=== PATIENT | male | born 1940 | race Caucasian/White ===

== ENCOUNTER 2017-08-23 12:47 | Emergency (ER) | payer MEDICARE ==
[2017-08-23 14:04] LABS: #Eosinphils 0.1 thou/uL (0.0-0.7); #Lymphocytes 0.8 thou/uL (1.20-3.40); #Monocytes 0.9 thou/uL (0.11-0.59); #Neutrophils 8.6 thou/uL (1.40-6.50); %Eosinophils 0.5 % (0.0-10.0); %Lymphocytes 7.5 % (21.0-51.0); %Monocytes 8.3 % (0.0-10.0); Hematocrit 52.3 % (42.0-52.0); Mean Platelet Volume 7.7 fL (7.4-10.4); Red Blood Cell (RBC) Count 5.45 mill/uL (4.70-6.10); White Blood Cell (WBC) Count 10.3 thou/uL (4.8-10.8)
[2017-08-23 14:27] LABS: ALT (SGPT) 21 U/L (8-55); AST (SGOT) 19 U/L (5-34); Alkaline Phosphatase 110 U/L (40-150); Anion Gap 12 mmol/L (10-20); BUN (Urea Nitrogen) 23 mg/dL (8.4-25.7); Bilirubin, Total 1.4 mg/dL (0.2-1.2); CK (CPK) 68 U/L (30-200); Calc. Creatinine Clearance 0 mL/min (70-130); Calcium 10.2 mg/dL (7.8-10.44); Carbon Dioxide 30 mmol/L (23-31); Chloride 103 mmol/L (98-107); Estimated GFR-MDRD 60; Globulin 3.1 g/dL (2.4-3.5); Protein, Total 7.4 g/dL (5.8-8.1)
[2017-08-23 14:28] LABS: Troponin I 0.011 ng/mL (< 0.028)
--- NOTE | 2017-08-23 15:13 | RAD ---
CHEST 2 VIEWS: Date: 08/23/17 HISTORY: Bradycardia. COMPARISON: 03/19/13. FINDINGS: Cardiac silhouette and pulmonary vasculature are unremarkable. Mediastinum is midline. There is no co nfluent air space consolidation, pneumothorax, or pleural fluid evident. Metallic clips overlie the r ight axilla. Ossification of the anterior longitudinal ligament of the thoracic spine on the lateral view is consistent with diffuse idiopathic skeletal hyperostosis. IMPRESSION: Chronic-type findings are stable. No active cardiopulmonary abnormalities are demonstrated. POS: [facility]
== END 2017-08-23 16:34 | disposition home or self-care (01) ==
LOC: ERS 12:47
DX: R00.1 Bradycardia, unspecified (principal); I48.91 Unspecified atrial fibrillation; E78.5 Hyperlipidemia, unspecified; I10 Essential (primary) hypertension
CPT/HCPCS: 36415; 71020; 80053; 82553; 83735; 83880; 84443; 84484; 85025; 93005

== ENCOUNTER 2018-08-01 09:02 | Outpatient (CLI) | payer MEDICARE ==
--- NOTE | 2018-08-01 15:56 | MRI ---
MRI NECK AND FACE WITH AND WITHOUT CONTRAST: CLINICAL HISTORY: Mass of parotid gland. FINDINGS: Correlation is made with prior imaging exams. There is predominant fatty signal of each parotid gland with interspersed intraparotid lymph nodes de monstrated bilaterally, the largest of which is located within the left parotid gland, approximately 1.4 cm in diameter, immediately overlying the left angle of the mandible, situated within the deep lo be. The submandibular glands are unremarkable. No obvious intrinsic mass of the pharynx or at the l evel of the glottis, within limitations, as there is patient motion, which distorts anatomy and limit s the sensitivity of the evaluation. Incidental note of cervical spine degenerative change. IMPRESSION: Bilateral intraparotid lymph nodes, as discussed above. Prior tubular structure of the left parapharyngeal space is consistent with a traversing vein. POS: [facility]
== END 2018-08-01 09:03 | disposition home or self-care (01) ==
LOC: BICMRI 09:02
PROVIDERS: ATTEND Specialist
DX: R22.0 Localized swelling, mass and lump, head (principal)
CPT/HCPCS: 70543; 82565

== ENCOUNTER 2018-11-15 14:27 | Inpatient (IN) | payer MEDICARE ==
[~2018-11-15 14:27] MED LIST: Lidocaine 1% PF 5 ML VIAL ONE; PROPOFOL 200 MG/20 ML VIAL ONE
[2018-11-15] MEDS ORDERED: [UNRECOGNIZED DRUG - OTHER] IV SCH ×2 (16:00→20:00)
[2018-11-15] MEDS ORDERED: HUMAN PROTHROMBIN COMPLX IV SCH ×3 (16:00→20:00)
[2018-11-15] MEDS ORDERED: HUM PROTHROMBIN CPLX IV SCH ×3 (16:00→20:00)
[2018-11-15 16:11] LABS: #Lymphocytes 0.9 thou/uL (1.20-3.40); #Monocytes 1.4 thou/uL (0.11-0.59); #Neutrophils 13.5 thou/uL (1.40-6.50); %Eosinophils 0.2 % (0.0-10.0); %Lymphocytes 5.8 % (21.0-51.0); Hemoglobin 7.5 g/dL (14.0-18.0); Mean Corpuscular Hemoglobin 32.5 pg (27.0-31.0); Mean Corpuscular Volume 98.3 fL (78.0-98.0); Mean Platelet Volume 8.7 fL (7.4-10.4); Platelet Count 186 thou/uL (130-400); RBC Distribution Width 12.7 % (11.5-14.5); Red Blood Cell (RBC) Count 2.32 mill/uL (4.70-6.10); White Blood Cell (WBC) Count 15.9 thou/uL (4.8-10.8)
[2018-11-15 16:16] LABS: INR-International Normal Ratio 2.3; PTT 31.4 SEC (22.9-36.1); Prothrombin Time 25.4 SEC (12.0-14.7)
[2018-11-15 16:32] LABS: ALT (SGPT) 7 U/L (8-55); AST (SGOT) 9 U/L (5-34); Albumin 2.3 g/dL (3.4-4.8); Alkaline Phosphatase 51 U/L (40-150); Anion Gap 11 mmol/L (10-20); BUN (Urea Nitrogen) 60 mg/dL (8.4-25.7); Bilirubin, Total 0.5 mg/dL (0.2-1.2); Calc. Creatinine Clearance 0 mL/min (70-130); Calcium 7.6 mg/dL (7.8-10.44); Carbon Dioxide 16 mmol/L (23-31); Chloride 122 mmol/L (98-107); Estimated GFR-MDRD 62; Globulin 1.4 g/dL (2.4-3.5); Glucose 137 mg/dL (83-110); Potassium 4.1 mmol/L (3.5-5.1); Protein, Total 3.7 g/dL (5.8-8.1); Sodium 145 mmol/L (136-145)
[2018-11-15 17:04] LABS: Troponin I Less than 0.010 ng/mL (< 0.028)
[2018-11-15] MEDS ORDERED: Pantoprazole 40 MG VIAL IVP SCH (17:15)
[2018-11-15] MEDS ORDERED: Pantoprazole 40 MG VIAL ONE (17:30)
--- NOTE | 2018-11-15 19:19 | HP ---
PRIMARY CARE PHYSICIAN: Stacey Brower MD CHIEF COMPLAINT: Weakness, falls, and melena. HISTORY OF PRESENT ILLNESS: This is a 77-year-old white male with a history of atrial fibrillation, on Xarelto. No previous history of GI bleed. He and his report a history of melena for the past 3 to 4 days. The patient is a little bit confused and most of the history is confirmed with his who was present in the room. He has started feeling weak after that he has had multiple falls. He was actually seen in the [facility] Emergency Room for a couple of days in a row after falls including one leaving bruises on his right anterior abdominal wall and his right shoulder. He became progressively weak and has become more confused as well. He is usually alert and oriented x3 without any confusion, so he was presented back to the emergency room again. There, he was noted to have multiple melenic stools and his blood count had dropped by 2 or 3 points in the last 2 days. In the [facility] Emergency Room, he was transfused with 1 unit of packed red blood cells. Uncertain if he had any other medications at that time. He was transferred here. In our emergency room, he had a hemoglobin, it dropped from 8.2 in the [facility] before the transfusion to 7.5 now. So, the patient received Kcentra 2500 units IV and is now being typed and crossed for transfusion of blood as well. PAST MEDICAL HISTORY: All history taken from the patient, confirmed with his and with the chart. 1. Parkinson disease. 2. Atrial fibrillation with prior ablation, on Xarelto. 3. Coronary artery disease with previous cardiac stents 7 years ago. 4. Previous TIA. 5. Hypertension. 6. Dyslipidemia. 7. 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 8. Obstructive sleep apnea, on CPAP. 9. Melanoma on back, treated with excision only. 10. Previous nephrolithiasis. 11. Intervertebral disk disease. PAST SURGICAL HISTORY: 1. Cardiac stent. 2. Right kidney tumor removal in 2016. 3. Cholecystectomy. 4. Tonsillectomy. 5. Appendectomy. 6. Cardiac ablation. 7. Bilateral cataract removal. SOCIAL HISTORY: The patient is , lives with his . No tobacco, alcohol, or illicit drug use. FAMILY HISTORY: Mother in her 80s and had a pacemaker and father was killed in a motor vehicle accident at the age of 58. ALLERGIES: NO KNOWN DRUG ALLERGIES. CURRENT MEDICATIONS: The patient's does not remember his medications and does not have a list with her right now. The medication list from the [facility] Emergency Room, I have not been able to confirm, but have his medicines listed as: 1. Amlodipine 5 mg daily. 2. Aspirin 81 mg daily. 3. Atorvastatin 80 mg at night. 4. Combigan ophthalmic drops. 5. Sinemet 10/100 mg one tablet 3 times a day. 6. Keflex 500 mg, unknown dosing or length of use. 7. Klonopin 0.5 mg, unknown frequency or reason for use. 8. Coenzyme Q 200 mg. 9. Furosemide 20 mg daily. 10. Lidoderm patch applied q.7 days. 11. Losartan 100 mg daily. 12. Metoprolol 25 mg twice a day. 13. Bactroban ointment. 14. Protonix 40 mg daily. 15. Potassium chloride 10 mEq daily. 16. Xarelto 20 mg daily. REVIEW OF SYSTEMS: CONSTITUTIONAL: No fevers. No chills. Just generalized weakness and confusion. EYES: No double vision or blurred vision. ENT: No congestion, drainage, or sore throat. No coughing up blood. CARDIOVASCULAR: No chest pain. No palpitations or racing heart. PULMONARY: No coughing, wheezing, or shortness of breath. GASTROINTESTINAL: No abdominal pain. No nausea or vomiting. He has black tarry stools as per the HPI. GENITOURINARY: No dysuria or hematuria. MUSCULOSKELETAL: He has some generalized muscle aches and joint pains from the falls, but nothing that hurts terribly bad. No joints that are hurting too much to walk. No worsening of his chronic back problems. SKIN: No rashes. He has had bruises as per the HPI. NEUROLOGIC: No numbness or tingling. No focal weakness. Just generalized weakness. PSYCHIATRIC: See HPI. PHYSICAL EXAMINATION: VITAL SIGNS: Blood pressure 131/59, pulse 88, respirations 22, temperature 97.8, and O2 saturation 100% on room air. GENERAL: This is a well-developed elderly white male, who appears very pale and mildly confused, but in no acute distress. HEENT: Pupils equal, round, and reactive to light. Pale conjunctivae. Oropharynx clear without lesions, erythema, or exudate. NECK: Supple. No lymphadenopathy. No thyroid nodules or enlargement. HEART: Regular rate and rhythm. No murmurs, rubs, or gallops. LUNGS: Clear to auscultation bilaterally. No wheezes, crackles, or rhonchi. ABDOMEN: Soft. Tender to palpation mildly in the midepigastric region and over a bruise on the right side of the abdomen. No guarding. No rebound tenderness. No hepatosplenomegaly or other masses. EXTREMITIES: No clubbing, cyanosis, or edema. SKIN: The patient does have some scattered bruises. NEUROLOGIC: The patient is moving all of the extremities. No facial droop. PSYCHIATRIC: The patient is alert and oriented to person, to place, to situation, but has some trouble remembering exactly what has happened recently and occasionally facing goofy things. LABORATORY DATA: White blood cell count 15.9, hemoglobin 7.5, hematocrit 22.8, and platelet count 186. Coagulation profile with a PT of 25 and INR of 2.3. Complete metabolic panel is notable for chloride of 122, a carbon dioxide of 16, BUN of 60, creatinine of 1.14, glucose of 137, calcium of 7.6, and albumin of 2.3. The rest was normal. IMAGING DATA: CT of the abdomen done at [facility] by report has no acute abnormalities, does have some diverticulosis visible with no diverticulitis. Chest x-ray done in the [facility] Emergency Room by report has no acute abnormalities as well. EKG from [facility] reviewed which shows sinus rhythm with frequent premature ventricular complexes. No significant ST elevations or other ischemic changes. ASSESSMENT AND PLAN: 1. Acute gastrointestinal bleed, likely upper gastrointestinal bleed. We will transfuse the patient blood as needed. He has already received the Kcentra and we will go ahead and give IV dose of Protonix and start a twice a day dosing as well. The patient may have a bleed from an ulcer or gastritis. He does have a low albumin. No history of liver disease, but it is always possible that he has some liver problems with varicosities as well as a source. He is not having active vomiting of blood though, and it is possible that the melena we are seeing is from bleeding that is now stopped. We will keep a close eye on his hemodynamic status. We will consult Dr. Jorge Raygoza for Gastroenterology as the patient will likely need an EGD and possibly a colonoscopy. 2. Coronary artery disease. We will have to hold blood thinners for now. We will resume aspirin when able. We will continue the patient's atorvastatin. We will try to keep the hemoglobin above 7 to make certain he is getting good blood flow into the coronary vessels. 3. Hypertension. We will hold the patient's antihypertensives for now. However, we will likely need to resume them if his bleed stops. 4. Parkinson's. We will resume the patient's medications. 5. Deep venous thrombosis prophylaxis with the patient on SCDs while in bed. 6. Atrial fibrillation, paroxysmal, currently in sinus rhythm with PVCs on his EKG. CODE STATUS: I did discuss this with the patient and his who is his medical decision maker and medical power of title attorney. He is a full code. The patient's 's name is Rivka Roman. Job ID: [id number]
[2018-11-15] MEDS ORDERED: Acetaminophen 650 MG Suppository PR PRN (19:25)
[2018-11-15] MEDS ORDERED: Guaifenesin DM 100-10/5 ML UDCUP PO PRN (19:25)
[2018-11-15] MEDS ORDERED: Ondansetron PF 4 MG/2 ML Vial IVP PRN (19:25)
[2018-11-15] MEDS ORDERED: Melatonin 3 MG TAB PO PRN (19:25)
[2018-11-15] MEDS ORDERED: Senokot S 8.6-50 MG TAB PO PRN (19:25)
[2018-11-15] MEDS ORDERED: Ondansetron ODT 4 MG TAB PO PRN (19:25)
[2018-11-15] MEDS ORDERED: [UNRECOGNIZED DRUG - OTHER] IV SCH (20:00)
[2018-11-15] MEDS ORDERED: Fentanyl 100 MCG/2 ML VIAL ONE (20:02)
[2018-11-15 20:15] LABS: Troponin I Less than 0.010 ng/mL (< 0.028)
[2018-11-15] MEDS ORDERED: Ondansetron HCl/PF 4 MG/2 ML Vial IVP PRN (20:31)
[2018-11-15] MEDS: Sodium Chloride 0.9% 1,000 ML IV SCH (21:21)
[2018-11-15] MEDS: Carbidopa/Levodopa 10-100 mg Tablet PO SCH (21:22)
[2018-11-15] MEDS: Pantoprazole 40 MG VIAL IVP SCH (21:23)
--- NOTE | 2018-11-15 21:25 | CON ---
DATE OF CONSULTATION: HISTORY OF PRESENT ILLNESS: The patient is a 77-year-old male, who is in his normal state of health until 2 days ago when he started having GI bleeding. This originally started out as black in color. He has had no abdominal pain. He has had no nausea or vomiting. He denies any NSAID use. He does take Xarelto for atrial fibrillation. He has never had a GI bleed. He is unsure whether he has diverticula. He has never had gastric ulcers. In the emergency room, he has had episodes of low blood pressure. He was given Kcentra 2500 units. PAST MEDICAL HISTORY: Includes atrial fibrillation on Xarelto, coronary artery disease with previous stent placement, hypertension, and hyperlipidemia. PAST SURGICAL HISTORY: Includes kidney removal, cholecystectomy, tonsillectomy, and cardiac ablation. SOCIAL HISTORY: He does not smoke or drink. ALLERGIES: NO KNOWN DRUG ALLERGIES. FAMILY HISTORY: Negative for GI or liver disease. MEDICATIONS: Include: 1. Norvasc 5 mg p.o. daily. 2. Aspirin 81 mg p.o. daily. 3. Atorvastatin 80 mg p.o. q.p.m. 4. Eyedrops. 5. Sinemet 10/100 one p.o. t.i.d. 6. Keflex 500 mg. 7. Klonopin 0.5 mg. 8. Coenzyme Q. 9. Lasix 20 mg. 10. Losartan 100 mg p.o. daily. 11. Metoprolol 25 mg p.o. b.i.d. 12. Protonix 40 mg p.o. daily. 13. Potassium chloride 10 mEq p.o. daily. 14. Xarelto 20 mg p.o. daily. PHYSICAL EXAMINATION: GENERAL: Shows a pale white male, in no acute distress. VITAL SIGNS: Blood pressure 104/70, pulse of 90, and respiratory rate 16. CHEST: Clear. CARDIOVASCULAR: Irregular rate and rhythm. ABDOMEN: Soft and nontender without organomegaly or masses. Bowel sounds are present and normoactive. RECTAL: Deferred. EXTREMITIES: Normal. NEUROLOGIC: Nonfocal. LABORATORY DATA: Hemoglobin from 1348 shows a hemoglobin 7.5, hematocrit of 22.8. PT is 25.4 with an INR 2.3. BUN 60, creatinine 1.14, CO2 of 16, glucose 137, and albumin 2.3. ASSESSMENT: 1. Probable upper gastrointestinal bleed. 2. Atrial fibrillation, on Xarelto. 3. Anemia secondary to gastrointestinal blood loss. RECOMMENDATIONS: 1. Emergent EGD. 2. Consider additional doses of Kcentra. 3. Serial H and H. 4. Transfuse as needed. 5. PPI. Job ID: [id number]
[2018-11-15] MEDS ORDERED: Lorazepam 2 MG/ML VIAL SLOW IVP SCH (22:00)
[2018-11-15 22:25] VITALS: BMI 24.7
[2018-11-16 01:01] LABS: Troponin I Less than 0.010 ng/mL (< 0.028)
[2018-11-16 04:35] LABS: #Lymphocytes 0.7 thou/uL (1.20-3.40); #Neutrophils 18.1 thou/uL (1.40-6.50); %Basophils 0.1 % (0.0-1.0); %Eosinophils 0.2 % (0.0-10.0); %Lymphocytes 3.7 % (21.0-51.0); %Neutrophils 91.1 % (42.0-75.0); Hemoglobin 6.9 g/dL (14.0-18.0); Mean Corpuscular HGB CONC 32.9 g/dL (32.0-36.0); Mean Corpuscular Hemoglobin 32.7 pg (27.0-31.0); Mean Corpuscular Volume 99.1 fL (78.0-98.0); Mean Platelet Volume 8.6 fL (7.4-10.4); Platelet Count 165 thou/uL (130-400); RBC Distribution Width 13.5 % (11.5-14.5); Red Blood Cell (RBC) Count 2.12 mill/uL (4.70-6.10); White Blood Cell (WBC) Count 19.9 thou/uL (4.8-10.8)
[2018-11-16 04:56] LABS: Anion Gap 13 mmol/L (10-20); BUN (Urea Nitrogen) 68 mg/dL (8.4-25.7); Calc. Creatinine Clearance 63 mL/min (70-130); Calcium 7.9 mg/dL (7.8-10.44); Carbon Dioxide 15 mmol/L (23-31); Chloride 122 mmol/L (98-107); Estimated GFR-MDRD 51; Glucose 148 mg/dL (83-110); Potassium 3.9 mmol/L (3.5-5.1); Sodium 146 mmol/L (136-145)
--- NOTE | 2018-11-16 06:57 | NM ---
NUCLEAR MEDICINE GI BLEEDING STUDY: 11/16/2018 HISTORY: Gastrointestinal bleeding. RADIOPHARMACEUTICAL: Technetium 99m tagged red blood cells 30 millicuries IV. VIEWS OBTAINED: Anterior. TECHNIQUE: Sequential anterior imaging was obtained of the abdomen. FINDINGS: There is a focus of increased uptake of radiotracer seen at approximately 8 minutes in the right lowe r quandrant. This activity increases and progresses over time and conforms to a loop of bowel. The activity conforms to multiple serpiginous loops of bowel in the right lower quadrant. While the exac t site of bleeding is difficult to determine, findings are suggestive of activity within loops of sma ll bowel. The activity does not conform to the expected location of the colon. A recent CT scan exa mination is not provided, but a CT scan in 2013 demonstrated normal positioning of the colon on that exam. IMPRESSION: 1. Evidence of a gastrointestinal bleed within the right lower quadrant of the abdomen with multiple serpiginous loops of bowel seen, which is more suggestive of a gastrointestinal bleeding site within the small bowel. The activity does not definitely conform to the expected location of the colon. 2. The above findings were discussed with Dr. Chau on 11/16/2018 at 1206 hours. CODE CR POS: [facility]
--- NOTE | 2018-11-16 08:14 | OP ---
DATE OF PROCEDURE: 11/15/2018 PREOPERATIVE DIAGNOSIS: Gastrointestinal bleed. DESCRIPTION OF PROCEDURE: After informed consent was obtained, the patient was placed in a left lateral decubitus position. Anesthesia was administered per the Anesthesia Department. Forward-viewing endoscope was inserted into esophagus under direct visualization with ease and passed to the second portion of the duodenum with ease. Second portion of the duodenum and duodenal bulb were normal. Pylorus, antrum, body, fundus, and cardia were normal. No blood was seen in the upper GI tract. ASSESSMENT: Normal esophagogastroduodenoscopy. RECOMMENDATIONS: 1. GI bleeding scan. 2. Serial H and H. 3. Increase doses of the Kcentra. Job ID: [id number]
--- NOTE | 2018-11-16 08:35 | CON ---
DATE OF CONSULTATION: HISTORY OF PRESENT ILLNESS: A 77-year-old gentleman from [place], [place]. History obtained from talking to the daughter. For the last several days, the patient had been getting lightheaded, weak, was taken to the ER at least 2 times in [place] where nothing specific was done. Lab was obtained, which was negative. Yesterday, he fell again and became more confused, was hypotensive. Found to be anemic in the ER. Given a unit of packed cells and Kcentra for lower GI bleed, apparently for 5 days now. The daughter says he is having black stools. The patient has never smoked. Does not drink. He has periods of confusion from time to time, probably from his Parkinson disease. PAST MEDICAL HISTORY: Parkinson disease, atrial arrhythmias, atrial fibrillation, hyperlipidemia, high cholesterol, and sleep apnea. PAST SURGICAL HISTORY: Include stent, ablation, cholecystectomy, tonsils, and kidney surgery. SOCIAL HISTORY: Alcohol, minimal. MEDICATIONS: List of medicine from home as noted: 1. CoQ10 200. 2. Xarelto 20. 3. Losartan. 4. Calcium. ALLERGIES: NONE. FAMILY HISTORY: Unremarkable. REVIEW OF SYSTEMS: Difficult to obtain. He is confused, but from time to time, answers appropriate questions. PHYSICAL EXAMINATION: VITAL SIGNS: Blood pressure 120/80, pulse 80, respiratory rate 18, and saturations 98%. GENERAL: He does move all four extremities. CHEST: Decreased breath sounds. No wheezing. CARDIAC: Atrial fibrillation. ABDOMEN: Distended, but soft. LABORATORY DATA: White count 82509, H and H 6.9 and 21, platelet count 165, BUN and creatinine 60 and 1.37. He had a GI bleed scan, which shows bleeding from the right colon. GI saw the patient last night. Apparently, upper endoscopy was unremarkable, unable to do lower endoscopy. IMPRESSION: 1. Lower gastrointestinal bleed. 2. Atrial fibrillation, on Xarelto. 3. Parkinson disease, sleep apnea and azotemia. Transfusion of packed cells. Continue observation in the ICU. Input from GI. We will follow. This is a consultation note, 70 minutes, 50% direct patient care. Job ID: [id number]
[2018-11-16] MEDS: Pantoprazole 40 MG VIAL IVP SCH ×2 (08:50→20:36)
[2018-11-16] MEDS: Carbidopa/Levodopa 10-100 mg Tablet PO SCH ×3 (09:22→20:36)
[2018-11-16] MEDS: Sodium Chloride 0.9% 1,000 ML IV SCH ×2 (09:25→23:00)
--- NOTE | 2018-11-16 09:39 | PDOC.PN ---
- Subjective Encounter Start Date: 11/16/18 Encounter Start Time: 11:25 Subjective: Patient with stable vitals overnight, less melena. No more hypotension. His -: confusion has progressed, agitated all night. No sleep. Not oriented. - Objective Resuscitation Status - Order Detail: 11/15/18 17:01 Resuscitation Status Routine Resuscitation Status: FULL: Full Resuscitation Discussed with: Patient and who is SAMMY LÓPEZ Reviewed: Yes Vital Signs & Weight: Vital Signs (12 hours) Temp Pulse Resp BP Pulse Ox 11/16/18 08:30 98.1 F 82 18 127/32 L 100 11/16/18 08:14 98.7 F 93 20 108/68 100 11/16/18 07:00 98.1 F 11/16/18 03:00 98.9 F Weight Weight 213 lb 13.574 oz Most Recent Monitor Data Heart Rate from ECG 92 NIBP 125/52 NIBP BP-Mean 76 Respiration from ECG 27 SpO2 99 I&O: 11/15/18 11/16/18 11/17/18 06:59 06:59 06:59 Intake Total 517 0 Output Total 252 Balance 265 0 Result Diagrams: 11/16/18 04:17 11/16/18 04:17 Phys Exam - Physical Examination HEENT: moist MMs Respiratory: no wheezing, no rales, no rhonchi Cardiovascular: RRR, no significant murmur Gastrointestinal: soft, positive bowel sounds Neurological: non-focal Deviation from normal: sleeping, but restless, moving legs constantly, required restraints overnig Dx/Plan (1) Delirium Code(s): R41.0 - DISORIENTATION, UNSPECIFIED Status: Acute Comment: likely due to GI bleed/anemia on top of Parkinson's. Will give some Seroquel at night and see if can sleep. Check a UA to r/o UTI. (2) GI bleed Code(s): K92.2 - GASTROINTESTINAL HEMORRHAGE, UNSPECIFIED Status: Acute Comment: Bleeding scan showing active bleeding in RLQ into small bowel, vitals stable and only small drop this AM, appears to be slowing down, will transfuse one more unit and monitor, no need for surgical consultation at this point (3) Paroxysmal atrial fibrillation Code(s): I48.0 - PAROXYSMAL ATRIAL FIBRILLATION Status: Chronic (4) Parkinsons disease Code(s): G20 - PARKINSON'S DISEASE Status: Chronic (5) CAD (coronary artery disease) Code(s): I25.10 - ATHSCL HEART DISEASE OF [place] CORONARY ARTERY W/O ANG PCTRS Status: Chronic Comment: previous stent (6) Dyslipidemia Code(s): E78.5 - HYPERLIPIDEMIA, UNSPECIFIED Status: Chronic (7) LIBERTY on CPAP Code(s): G47.33 - OBSTRUCTIVE SLEEP APNEA (ADULT) (PEDIATRIC); Z99.89 - DEPENDENCE ON OTHER ENABLING MACHINES AND DEVICES Status: Chronic (8) Hypertension Code(s): I10 - ESSENTIAL (PRIMARY) HYPERTENSION Status: Chronic - Plan cont current plan of care, PT/OT, DVT proph w/SCDs * . - Discharge Day Encounter end time: 11:40
[2018-11-16] MEDS: Lorazepam 2 MG/ML VIAL SLOW IVP PRN (12:19)
--- NOTE | 2018-11-16 13:19 | PRG ---
DATE OF SERVICE: 11/16/2018 SUBJECTIVE: The patient is confused last night and agitated. He has had no bowel movements per the nurse. OBJECTIVE: VITAL SIGNS: Temperature is 98.4, pulse of 92, respiratory rate 22, blood pressure 122/53. CHEST: Clear. CARDIOVASCULAR: Regular rate and rhythm without murmurs or gallops. ABDOMEN: Benign. LABORATORY DATA: White blood cell count of 19.9, hemoglobin 6.9, hematocrit 21.0. PT is 25.4 with an INR 2.3 yesterday. Chemistry shows sodium 143, CO2 15, BUN 68, creatinine 1.37, glucose 148. DIAGNOSTIC DATA: GI bleeding scan shows evidence of a GI bleeding within the right lower quadrant with multiple serpiginous loops of bowel seen, which is suggestive of small bowel bleed. ASSESSMENT: 1. Gastrointestinal bleed. GI bleeding scan indicates small bowel source. 2. Coagulopathy secondary to Xarelto. 3. Confusion/agitation. RECOMMENDATIONS: 1. Some of his agitation may be secondary to his anemia and would recommend keeping his hemoglobin above 7 or 8. 2. Colonoscopy. At some point, but not right now because of his agitation and confusion. 3. Serial hemoglobin and hematocrit. 4. Begin clear liquids. 5. Repeat PT/INR. 6. Hold Xarelto. Job ID: [id number]
[2018-11-16 15:11] LABS: Anisocytosis SLIGHT = 6-15 cells (100X) (0-5/hpf); Band 16 % (5-11); Hemoglobin 7.5 g/dL (14.0-18.0); Lymphocytes 3 % (21-51); MDiff Complete? YES; Mean Corpuscular HGB CONC 33.5 g/dL (32.0-36.0); Mean Corpuscular Hemoglobin 32.4 pg (27.0-31.0); Mean Corpuscular Volume 96.7 fL (78.0-98.0); Mean Platelet Volume 8.1 fL (7.4-10.4); Monocytes 2 % (0-10); Neutrophil 79 % (42-75); Platelet Count 141 thou/uL (130-400); Platelet Morphology Comment Appears Adequate; RBC Distribution Width 13.3 % (11.5-14.5); Red Blood Cell (RBC) Count 2.32 mill/uL (4.70-6.10); White Blood Cell (WBC) Count 19.9 thou/uL (4.8-10.8)
[2018-11-16 16:55] LABS: Bilirubin Negative (Negative); Blood, Urine Negative (Negative); Clarity CLEAR (Clear); Glucose, Urine (Dipstick) Negative (Negative); Leukocyte Negative (Negative); Nitrite Negative (Negative); Protein, Urine (Dipstick) Negative (Neg-Trace); Specific Gravity, Urine 1.021 (1.002-1.036); Urobilinogen 0.2 mg/dL (0.2-1.0)
[2018-11-16 17:31] LABS: INR-International Normal Ratio 1.2; Prothrombin Time 15.7 SEC (12.0-14.7)
[2018-11-16] MEDS: Acetaminophen 325 MG TAB PO PRN (18:36)
[2018-11-17] MEDS: Lorazepam 2 MG/ML VIAL SLOW IVP PRN (02:20)
[2018-11-17 06:20] LABS: Anion Gap 9 mmol/L (10-20); BUN (Urea Nitrogen) 52 mg/dL (8.4-25.7); Calc. Creatinine Clearance 76 mL/min (70-130); Calcium 7.8 mg/dL (7.8-10.44); Carbon Dioxide 19 mmol/L (23-31); Chloride 124 mmol/L (98-107); Estimated GFR-MDRD 63; Glucose 122 mg/dL (83-110); Potassium 3.7 mmol/L (3.5-5.1); Sodium 148 mmol/L (136-145)
[2018-11-17 06:21] LABS: #Eosinphils 0.1 thou/uL (0.0-0.7); #Lymphocytes 0.9 thou/uL (1.20-3.40); #Monocytes 1.2 thou/uL (0.11-0.59); #Neutrophils 13.4 thou/uL (1.40-6.50); %Eosinophils 0.5 % (0.0-10.0); %Lymphocytes 5.8 % (21.0-51.0); %Monocytes 7.7 % (0.0-10.0); %Neutrophils 85.9 % (42.0-75.0); Hemoglobin 7.5 g/dL (14.0-18.0); Mean Corpuscular HGB CONC 32.3 g/dL (32.0-36.0); Mean Corpuscular Hemoglobin 31.6 pg (27.0-31.0); Mean Platelet Volume 8.6 fL (7.4-10.4); Platelet Count 155 thou/uL (130-400); RBC Distribution Width 13.8 % (11.5-14.5); Red Blood Cell (RBC) Count 2.38 mill/uL (4.70-6.10); White Blood Cell (WBC) Count 15.6 thou/uL (4.8-10.8)
[2018-11-17] MEDS: Pantoprazole 40 MG VIAL IVP SCH ×2 (08:27→20:23)
--- NOTE | 2018-11-17 08:49 | PRG ---
DATE OF SERVICE: 11/17/2018 SUBJECTIVE: This morning, he looks like he is stabilized, still somewhat encephalopathic. He is shaking probably from his Parkinson disease. OBJECTIVE: VITAL SIGNS: Blood pressure 148/51, sats are 99%, respiratory rate 18, afebrile. CHEST: Decreased breath sounds. No wheezing. CARDIAC: Normal S1 and S2. No gallops or masses. LABORATORY DATA: White count 15,000, H and H 7 and 21, platelet count 55. His lytes are normal. BUN and creatinine 50 and 1.3. IMPRESSION: 1. Status post gastrointestinal bleed. 2. Atrial fibrillation. 3. Encephalopathy. 4. Parkinson disease. PLAN: We need to restart his home Parkinson's medication. Supportive care PT. Continue observation in the ICU. Avoid excessive sedation. Job ID: [id number]
[2018-11-17] MEDS: Carbidopa/Levodopa 10-100 mg Tablet PO SCH (09:00)
--- NOTE | 2018-11-17 10:55 | PRG ---
DATE OF SERVICE: 11/17/2018 SUBJECTIVE: The patient is still confused, but seemed more appropriate than yesterday. OBJECTIVE: VITAL SIGNS: Blood pressure 108/62, pulse 77, respiratory rate 25, temperature 98.3. CHEST: Clear. CARDIOVASCULAR: Regular rate and rhythm. ABDOMEN: Soft, nontender without organomegaly or masses. Bowel sounds are present normoactive. LABORATORY DATA: White blood cell count of 15.6, hemoglobin of 7.5, hematocrit 23.4. Sodium is 148, CO2 19, BUN 52, glucose 122. Repeat PT/INR was 15.7 with an INR of 1.2. ASSESSMENT: 1. Gastrointestinal bleed. Bleeding scan seemed to indicate a small-bowel source. 2. Coagulopathy, secondary to Xarelto, resolved. 3. Confusion/agitation. 4. Anemia, secondary to gastrointestinal blood loss. RECOMMENDATIONS: 1. Continue to hold Xarelto. 2. Colonoscopy when the patient is less confused. 3. Dr. Zavala covering this. Job ID: [id number]
[2018-11-17] MEDS: Carbidopa/Levodopa 25-100 mg Tablet PO SCH ×2 (11:50→17:16)
[2018-11-17] MEDS: Sodium Chloride 0.9% 1,000 ML IV SCH (11:56)
--- NOTE | 2018-11-17 12:33 | CON ---
DATE OF TELEMEDICINE CONSULTATION: 11/17/2018 CHIEF COMPLAINT: Altered mental status. HISTORY OF PRESENT ILLNESS: The patient is a 77-year-old man, who has had Parkinson disease for 2 years. His Parkinson's is relatively mild per . He is independent and takes care of his day-to-day activities. He has very little tremor. He does not have any confusion or memory problems. He has been falling lately. He has had 4 to 5 falls last week and hurt his back. This admission is mainly for GI bleed and he is going through various investigations for the same and continues to remain confused and agitated. Daughter and were in the room. PAST MEDICAL HISTORY: Parkinson disease, coronary artery disease with atrial fibrillation, hyperlipidemia, hypercholesterolemia, and sleep apnea. PAST SURGICAL HISTORY: He had a coronary artery stent and cardiac ablation procedure, cholecystectomy, tonsillectomy, and kidney surgery for benign kidney tumor. MEDICATIONS: At home; 1. Co Q10. 2. Xarelto. 3. Losartan. 4. Calcium. Xarelto was stopped after his GI bleed. FAMILY HISTORY: Negative for Parkinson's, but positive for heart problems in several members of the family. ALLERGIES: NO KNOWN DRUG ALLERGIES. REVIEW OF SYSTEMS: Difficult to obtain. LABORATORY REPORT: White count 15.6, hemoglobin 7.5, hematocrit 23.4, and platelet count 155. Chemistry; sodium 148, potassium 3.7, chloride 124, BUN is 52, creatinine 1.13, and anion gap 9, bicarbonate is 19, and his other workup includes, I am not seeing a CT of the head at this time and his GI bleed was in the right lower quadrant of the abdomen suggestive of GI bleeding site within small bowel. PHYSICAL EXAMINATION: VITAL SIGNS: Blood pressure is 154/63, pulse rate is 99, and temperature 99.4. GENERAL APPEARANCE: Well-built, well-nourished man, who seems to be confused, mouth-breathing, and seems agitated. Moves all 4 extremities. He does try to follow some commands. We are unable to understand his speech due to dysarthria. CHEST: Clear vesicular breathing. CARDIOVASCULAR: S1 and S2 heard, irregular premature atrial contractions. ABDOMEN: Soft. NEUROLOGICAL: Higher intellectual functions. As discussed, he seems confused, but tries to talk and still can follow some commands. Cranial nerves, pupils 4 mm and brisk. Normal extraocular movements. Normal hearing. Tongue midline. Palate elevates normally. Motor, bulk normal, strength seems to be normal in both upper and lower extremities and this is more of a general motor exam rather than specific muscle group examination, which the patient is unable to perform. Deep tendon reflexes were 2+ in upper extremities, absent in lower extremities. Sensory and cerebellar difficult to determine. IMPRESSION: The patient is a 77-year-old man with Parkinson disease and acute GI bleed with dehydration and anemia. He seems very confused. This is a picture that can be seen in association with Parkinson disease and systemic illness. The patient's reports he takes two tablets of carbidopa-levodopa three times a day and not one tablet. His examination is showing no focal deficits other than cognitive impairment and altered mental status with encephalopathy, likely due to underlying metabolic factors. RECOMMENDATIONS: I will restart his carbidopa-levodopa 25/100 two tablets three times daily. I will check on the patient again tomorrow. We will increase his Seroquel to 50 mg at night to improve his confusion. Thank you for the consultation. Job ID: [id number] [facility]ITALAnatoly
--- NOTE | 2018-11-17 14:11 | PDOC.PN ---
- Subjective Encounter Start Date: 11/17/18 Encounter Start Time: 16:00 Subjective: awakens to touch, no sob -: not oriented -: daughter at bedside - Objective Resuscitation Status - Order Detail: 11/15/18 17:01 Resuscitation Status Routine Resuscitation Status: FULL: Full Resuscitation Discussed with: Patient and who is SAMMY LÓPEZ Reviewed: Yes Vital Signs & Weight: Vital Signs (12 hours) Temp Pulse BP BP Pulse Ox Pulse Ox 11/17/18 11:10 95 154/63 H 157/87 H 100 11/17/18 11:00 99.4 F 11/17/18 08:00 98.3 F 99 11/17/18 04:00 97.7 F Weight Weight 213 lb 13.574 oz Most Recent Monitor Data Heart Rate from ECG 83 NIBP 140/84 NIBP BP-Mean 102 Respiration from ECG 27 SpO2 88 I&O: 11/16/18 11/17/18 11/18/18 06:59 06:59 06:59 Intake Total 517 2858 Output Total 252 803 325 Balance 265 2055 -325 Result Diagrams: 11/17/18 05:40 11/17/18 05:40 Phys Exam - Physical Examination HEENT: PERRLA, sclera anicteric Neck: no JVD, supple Respiratory: no wheezing, no rales Cardiovascular: RRR, no significant murmur Gastrointestinal: soft, non-tender, positive bowel sounds Musculoskeletal: no edema, pulses present Neurological: non-focal, moves all 4 limbs Dx/Plan (1) GI bleed Code(s): K92.2 - GASTROINTESTINAL HEMORRHAGE, UNSPECIFIED Status: Acute Comment: Bleeding scan showed active bleeding in RLQ into small bowel 11/17/18 (2) Acute blood loss anemia Code(s): D62 - ACUTE POSTHEMORRHAGIC ANEMIA Status: Acute (3) ZEENAT (acute kidney injury) Code(s): N17.9 - ACUTE KIDNEY FAILURE, UNSPECIFIED Status: Acute (4) Acute encephalopathy Code(s): G93.40 - ENCEPHALOPATHY, UNSPECIFIED Status: Acute (5) CAD (coronary artery disease) Code(s): I25.10 - ATHSCL HEART DISEASE OF [place] CORONARY ARTERY W/O ANG PCTRS Status: Chronic Qualifiers: Coronary Disease-Associated Artery/Lesion type: [place] artery [place] vs. transplanted heart: [place] heart Associated angina: without angina Qualified Code(s): I25.10 - Atherosclerotic heart disease of [place] coronary artery without angina pectoris Comment: previous stent (6) Dyslipidemia Code(s): E78.5 - HYPERLIPIDEMIA, UNSPECIFIED Status: Chronic (7) Parkinsons disease Code(s): G20 - PARKINSON'S DISEASE Status: Chronic (8) Paroxysmal atrial fibrillation Code(s): I48.0 - PAROXYSMAL ATRIAL FIBRILLATION Status: Chronic (9) Hypertension Code(s): I10 - ESSENTIAL (PRIMARY) HYPERTENSION Status: Chronic Qualifiers: Hypertension type: essential hypertension Qualified Code(s): I10 - Essential (primary) hypertension - Plan is on clear liq diet, protonix q12h -: sinemet, seroquel HS -: gentle iv hydration -: has recieved total of 2 u prbc this admission -: h/h stable this am * . Review of Systems - Medications/Allergies Allergies/Adverse Reactions: Allergies Allergy/AdvReac Type Severity Reaction Status Date / Time No Known Allergies Allergy Verified 11/15/18 22:24 Medications: Current Medications Acetaminophen (Tylenol) 650 mg PO Q4H PRN PRN Reason: Headache/Fever/Mild Pain (1-3) Last Admin: 11/16/18 18:36 Dose: 650 mg Acetaminophen (Tylenol) 650 mg [place] Q4H PRN PRN Reason: Headache/Fever/Mild Pain (1-3) Carbidopa/Levodopa (Sinemet 25-100) 2 tab PO 0700,1200,1700 [facility] Last Admin: 11/17/18 11:50 Dose: Not Given Guaifenesin/Dextromethorphan (Robitussin Dm) 15 ml PO Q4H PRN PRN Reason: Cough Sodium Chloride (Normal Saline 0.9%) 1,000 mls @ 75 mls/hr IV .[id number] [facility] Last Admin: 11/17/18 11:56 Dose: 1,000 mls Influenza Virus Vacc Triv Types A&B (Fluzone High-Dose 2017- Syr) 0.5 ml IM .ONCE ONE Stop: 11/19/18 08:01 Lorazepam (Ativan) 1 mg SLOW IVP Q4H PRN PRN Reason: Anxiety/Agitation Last Admin: 11/17/18 02:20 Dose: 1 mg Melatonin (Melatonin) 3 mg PO HS PRN PRN Reason: Insomnia Ondansetron HCl (Zofran Odt) 4 mg PO Q6H PRN PRN Reason: Nausea/Vomiting Ondansetron HCl (Zofran) 4 mg IVP Q6H PRN PRN Reason: Nausea/Vomiting Pantoprazole Sodium (Protonix) 40 mg IVP Q12HR [facility] Last Admin: 11/17/18 08:27 Dose: 40 mg Quetiapine Fumarate (Seroquel) 50 mg PO HS [facility] Senna/Docusate Sodium (Senokot S) 2 tab PO BID PRN PRN Reason: Constipation
[2018-11-17] MEDS: Haloperidol Lactate 5 MG/ML VIAL IM PRN ×2 (14:56→20:24)
[2018-11-17] MEDS ORDERED: Carbidopa/Levodopa 25-100 mg Tablet PO SCH (15:00)
[2018-11-18] MEDS: Sodium Chloride 0.9% 1,000 ML IV SCH ×2 (01:25→01:26)
[2018-11-18] MEDS: Haloperidol Lactate 5 MG/ML VIAL IM PRN ×4 (01:37→22:40)
[2018-11-18 08:48] LABS: #Eosinphils 0.1 thou/uL (0.0-0.7); #Lymphocytes 0.7 thou/uL (1.20-3.40); #Monocytes 1.2 thou/uL (0.11-0.59); #Neutrophils 13.9 thou/uL (1.40-6.50); %Eosinophils 0.5 % (0.0-10.0); %Lymphocytes 4.6 % (21.0-51.0); %Monocytes 7.3 % (0.0-10.0); %Neutrophils 87.7 % (42.0-75.0); Hemoglobin 7.6 g/dL (14.0-18.0); Mean Corpuscular HGB CONC 32.9 g/dL (32.0-36.0); Mean Corpuscular Hemoglobin 32.7 pg (27.0-31.0); Mean Corpuscular Volume 99.2 fL (78.0-98.0); Mean Platelet Volume 8.5 fL (7.4-10.4); Platelet Count 152 thou/uL (130-400); RBC Distribution Width 14.4 % (11.5-14.5); Red Blood Cell (RBC) Count 2.33 mill/uL (4.70-6.10); White Blood Cell (WBC) Count 15.8 thou/uL (4.8-10.8)
[2018-11-18 09:08] LABS: Anion Gap 11 mmol/L (10-20); BUN (Urea Nitrogen) 44 mg/dL (8.4-25.7); Calc. Creatinine Clearance 79 mL/min (70-130); Calcium 8.1 mg/dL (7.8-10.44); Carbon Dioxide 20 mmol/L (23-31); Estimated GFR-MDRD 66; Glucose 126 mg/dL (83-110); Potassium 3.6 mmol/L (3.5-5.1); Sodium 153 mmol/L (136-145)
[2018-11-18 09:14] LABS: Chloride 126 mmol/L (98-107)
[2018-11-18] MEDS: Pantoprazole 40 MG VIAL IVP SCH ×2 (09:15→19:41)
[2018-11-18] MEDS: Carbidopa/Levodopa 25-100 mg Tablet PO SCH ×3 (09:15→17:16)
--- NOTE | 2018-11-18 10:38 | EKG ---
Test Reason : GI BLEED Blood Pressure : / mmHG Vent. Rate : 084 BPM Atrial Rate : 084 BPM P-R Int : 138 ms QRS Dur : 088 ms QT Int : 398 ms P-R-T Axes : 053 -27 066 degrees QTc Int : 470 ms Sinus rhythm with frequent Premature ventricular complexes Nonspecific ST and T wave abnormality Prolonged QT Abnormal ECG Confirmed by TIARA CHA ([id number]), school photograph editor NEREYDA CLEMENTS ([id number]) on 11/18/2018 10:37:43 AM Referred By: JUAN Confirmed By:TIARA CHA
[2018-11-18] MEDS: Dextrose 5% in Water 1,000 ML IV SCH ×2 (10:58→20:04)
--- NOTE | 2018-11-18 16:02 | PDOC.PN ---
- Subjective Encounter Start Date: 11/18/18 Encounter Start Time: 07:45 Subjective: awakens to touch, keeps talking-not legible, mouth is dry -: not oriented, is in restraints - Objective Resuscitation Status - Order Detail: 11/15/18 17:01 Resuscitation Status Routine Resuscitation Status: FULL: Full Resuscitation Discussed with: Patient and who is SAMMY LÓPEZ Reviewed: Yes Vital Signs & Weight: Vital Signs (12 hours) Temp Pulse Pulse BP BP Pulse Ox Pulse Ox 11/18/18 11:00 98.8 F 84 91 109/62 130/57 L 96 11/18/18 08:00 94 L 11/18/18 07:52 98.9 F Pulse Ox 11/18/18 11:00 100 11/18/18 08:00 11/18/18 07:52 Weight Weight 213 lb 13.574 oz Most Recent Monitor Data Heart Rate from ECG 97 NIBP 133/62 NIBP BP-Mean 85 Respiration from ECG 27 SpO2 99 I&O: 11/17/18 11/18/18 11/19/18 06:59 06:59 06:59 Intake Total 2858 1744 150 Output Total 803 1445 620 Balance 2055 299 -470 Result Diagrams: 11/18/18 08:39 11/18/18 08:39 Phys Exam - Physical Examination HEENT: PERRLA dry mucosa Neck: no JVD, supple Respiratory: no wheezing, no rales Cardiovascular: RRR, no significant murmur Gastrointestinal: soft, non-tender, no distention, positive bowel sounds Musculoskeletal: no edema, pulses present Neurological: non-focal, moves all 4 limbs Dx/Plan (1) GI bleed Code(s): K92.2 - GASTROINTESTINAL HEMORRHAGE, UNSPECIFIED Status: Acute Comment: Bleeding scan showed active bleeding in RLQ into small bowel 11/17/18 (2) Acute blood loss anemia Code(s): D62 - ACUTE POSTHEMORRHAGIC ANEMIA Status: Acute (3) ZEENAT (acute kidney injury) Code(s): N17.9 - ACUTE KIDNEY FAILURE, UNSPECIFIED Status: Acute (4) Acute encephalopathy Code(s): G93.40 - ENCEPHALOPATHY, UNSPECIFIED Status: Acute (5) CAD (coronary artery disease) Code(s): I25.10 - ATHSCL HEART DISEASE OF [place] CORONARY ARTERY W/O ANG PCTRS Status: Chronic Qualifiers: Coronary Disease-Associated Artery/Lesion type: [place] artery [place] vs. transplanted heart: [place] heart Associated angina: without angina Qualified Code(s): I25.10 - Atherosclerotic heart disease of [place] coronary artery without angina pectoris Comment: previous stent (6) Dyslipidemia Code(s): E78.5 - HYPERLIPIDEMIA, UNSPECIFIED Status: Chronic (7) Parkinsons disease Code(s): G20 - PARKINSON'S DISEASE Status: Chronic (8) Paroxysmal atrial fibrillation Code(s): I48.0 - PAROXYSMAL ATRIAL FIBRILLATION Status: Chronic (9) Hypertension Code(s): I10 - ESSENTIAL (PRIMARY) HYPERTENSION Status: Chronic Qualifiers: Hypertension type: essential hypertension Qualified Code(s): I10 - Essential (primary) hypertension - Plan change iv fluids to D5W -: continue sinemet, protonix, seroquel, haldol prn -: encourage po intake if cleared by speech, freq oral care -: h/h is stable, might drop with hydration -: oob to chair if he gets a bit oriented, PT on bed until then * . Review of Systems - Medications/Allergies Allergies/Adverse Reactions: Allergies Allergy/AdvReac Type Severity Reaction Status Date / Time No Known Allergies Allergy Verified 11/15/18 22:24 Medications: Current Medications Acetaminophen (Tylenol) 650 mg PO Q4H PRN PRN Reason: Headache/Fever/Mild Pain (1-3) Last Admin: 11/16/18 18:36 Dose: 650 mg Acetaminophen (Tylenol) 650 mg [place] Q4H PRN PRN Reason: Headache/Fever/Mild Pain (1-3) Carbidopa/Levodopa (Sinemet 25-100) 2 tab PO 0700,1200,1700 [facility] Last Admin: 11/18/18 12:50 Dose: 2 tab Guaifenesin/Dextromethorphan (Robitussin Dm) 15 ml PO Q4H PRN PRN Reason: Cough Haloperidol Lactate (Haldol) 5 mg IM Q2H PRN PRN Reason: Agitation Last Admin: 11/18/18 12:50 Dose: 5 mg Dextrose/Water (D5w) 1,000 mls @ 100 mls/hr IV .Q10H [facility] Last Admin: 11/18/18 10:58 Dose: 1,000 mls Influenza Virus Vacc Triv Types A&B (Fluzone High-Dose Syr) 0.5 ml IM .ONCE ONE Stop: 11/19/18 08:01 Melatonin (Melatonin) 3 mg PO HS PRN PRN Reason: Insomnia Ondansetron HCl (Zofran Odt) 4 mg PO Q6H PRN PRN Reason: Nausea/Vomiting Ondansetron HCl (Zofran) 4 mg IVP Q6H PRN PRN Reason: Nausea/Vomiting Pantoprazole Sodium (Protonix) 40 mg IVP Q12HR [facility] Last Admin: 11/18/18 09:15 Dose: 40 mg Quetiapine Fumarate (Seroquel) 50 mg PO HS [facility] Last Admin: 11/17/18 20:24 Dose: 50 mg Quetiapine Fumarate (Seroquel) 25 mg PO BID [facility] Senna/Docusate Sodium (Senokot S) 2 tab PO BID PRN PRN Reason: Constipation
--- NOTE | 2018-11-18 18:12 | PRG ---
DATE OF SERVICE: SUBJECTIVE: Mr. Roman's mental status really has not improved. He remains agitated, in restraints. He has not had any bowel movements today. Certainly, no further melena or any hematochezia. He has remained hemodynamically stable and hemoglobin has been stable for the past 2 days now, still at 7.6. OBJECTIVE: VITAL SIGNS: Temperature 98.7, blood pressure 129/73, heart rate 96, 97% oxygen saturation on 2 L nasal cannula. GENERAL: Chronically ill, confused, lying in bed comfortably, in no distress. HEART: Regular rate and rhythm. LUNGS: Clear to auscultation bilaterally. ABDOMEN: Soft and nontender to palpation throughout. EXTREMITIES: No peripheral edema. LABORATORY DATA: Hemoglobin 7.6, WBC 15.8, and platelets 152. INR 1.2. Sodium 153, potassium 3.6, BUN 44, and creatinine 1.09. ASSESSMENT/PLAN: Gastrointestinal bleeding, unclear source. A tagged RBC scan suggested a bleeding location in the right lower quadrant and loops of small bowel. This is not an area where we would likely be able to reach endoscopically. On the other hand, the patient's bleeding does seem to have completely stopped over the past couple of days and this is a good sign. I agree with Dr. Raygoza that colonoscopy should be considered at some point to complete the endoscopic workup, but the patient would not tolerate bowel preparation at this time. The patient's daughter is in agreement. We will hold off on any endoscopy. Job ID: [id number]
--- NOTE | 2018-11-18 18:47 | PRG ---
DATE OF TELEMEDICINE SERVICE: 11/18/2018 ASSISTANT MANAGER RETAIL: SRI CHIEF COMPLAINT: Altered mental status. INTERVAL HISTORY: The patient did not sleep all night long and reports she is sleepy today. The patient has been altered even now, and per nursing staff, the patient has been trying to communicate, but is hallucinating, and family wanted to know if he can get a CT scan. CURRENT LABS: White count 15.8, hemoglobin 7.6, hematocrit 23.1, platelets 152. Chemistry; sodium 153, potassium 3.6, chloride 126, bicarb 20, BUN 44, creatinine 1.09, glucose 126, calcium 8.1. PHYSICAL EXAMINATION: VITAL SIGNS: Blood pressure 138/87, pulse is 90, he is afebrile, temperature is 98.7, and O2 sats 97% on room air. GENERAL: The patient was sleepy. He is moving his legs, not very coherent, unable to follow commands. Cranial nerves, pupils are equal, reactive to light. Tongue midline. No atrophy noted. Normal elevation of palate. Motor exam, tone normal, bulk is normal. Strength difficult to assess, but he is voluntarily moving all extremities. IMPRESSION: The patient is a 77-year-old man with Parkinson disease and acute confusional state, likely due to hypernatremia and his current gastrointestinal bleed. I restarted him on his usual dose of levodopa. RECOMMENDATIONS: Please discontinue haloperidol and change Seroquel to 50 mg at nighttime only, so we can see if he will wake up more during daytime. I will follow up again tomorrow. Job ID: [id number] MTDD
--- NOTE | 2018-11-18 21:31 | PRG ---
DATE OF SERVICE: 11/18/2018 SUBJECTIVE: Mr. Roman remains agitated. He is more agitated tonight. OBJECTIVE: VITAL SIGNS: He is afebrile, heart rate 103, blood pressure 111/70. LUNGS: Clear. HEART: Regular rhythm. ABDOMEN: Soft. EXTREMITIES: Without edema. He moves all extremities equally. He can be quite strong and combative at times according to the nurses. LABORATORY DATA: White count 15.8, hemoglobin 7.6, platelets 152. Sodium 153, potassium 3.6, chloride 126, bicarb 20, BUN 44, creatinine 1.09. His IV fluids have been switched to D5W. IMPRESSION AND PLAN: 1. Gastrointestinal blood loss. 2. Parkinson disease. 3. Sundowning? Parkinson's dementia. 4. Anemia secondary to blood loss. He really should be transfused so that he has some reserve in the event that he starts briskly bleeding again. 5. Seroquel was added. 6. I disagree with the neurologist that the confusion is from hypernatremia. Gradual onset hypernatremia does not lead to confusion. Job ID: [id number]
[2018-11-19] MEDS ORDERED: Lorazepam 2 MG/ML VIAL SLOW IVP PRN (00:01)
[2018-11-19] MEDS: Haloperidol Lactate 5 MG/ML VIAL IM PRN (01:35)
[2018-11-19 05:06] LABS: #Eosinphils 0.1 thou/uL (0.0-0.7); #Lymphocytes 0.4 thou/uL (1.20-3.40); #Monocytes 1.1 thou/uL (0.11-0.59); #Neutrophils 14.2 thou/uL (1.40-6.50); %Eosinophils 0.4 % (0.0-10.0); %Lymphocytes 2.7 % (21.0-51.0); %Neutrophils 89.9 % (42.0-75.0); Hemoglobin 8.4 g/dL (14.0-18.0); Mean Corpuscular HGB CONC 32.9 g/dL (32.0-36.0); Mean Corpuscular Hemoglobin 31.9 pg (27.0-31.0); Mean Platelet Volume 8.4 fL (7.4-10.4); Platelet Count 136 thou/uL (130-400); RBC Distribution Width 15.5 % (11.5-14.5); Red Blood Cell (RBC) Count 2.61 mill/uL (4.70-6.10); White Blood Cell (WBC) Count 15.8 thou/uL (4.8-10.8)
[2018-11-19 05:28] LABS: Anion Gap 11 mmol/L (10-20); BUN (Urea Nitrogen) 40 mg/dL (8.4-25.7); Calc. Creatinine Clearance 77 mL/min (70-130); Calcium 8.2 mg/dL (7.8-10.44); Carbon Dioxide 23 mmol/L (23-31); Chloride 121 mmol/L (98-107); Estimated GFR-MDRD 64; Glucose 141 mg/dL (83-110); Potassium 3.8 mmol/L (3.5-5.1); Sodium 151 mmol/L (136-145)
[2018-11-19] MEDS: Carbidopa/Levodopa 25-100 mg Tablet PO SCH ×3 (07:33→16:48)
[2018-11-19] MEDS: Pantoprazole 40 MG VIAL IVP SCH ×2 (07:43→21:07)
[2018-11-19] MEDS: Dextrose 5% in Water 1,000 ML IV SCH ×2 (07:44→16:49)
--- NOTE | 2018-11-19 12:12 | PRG ---
DATE OF TELEMEDICINE SERVICE: 11/19/2018 RECREATION THERAPIST: SRI CHIEF COMPLAINT: Altered mental status. INTERVAL HISTORY: The patient is more alert per family and nursing staff. He was able to answer orientation questions and knows he is at [facility] per his nurse. He has some improvement. It was felt by the ICU team that the patient will not tolerate MRI, especially the position in the supine position. MRI is currently being held off. Overall, the patient seems to have slight improvement compared to yesterday. LABORATORY WORKUP: White count 15.8, hemoglobin 8.4, hematocrit 25.4, platelets 136. Sodium 151, potassium 3.8, chloride 121, BUN 40, creatinine 1.12. PHYSICAL EXAMINATION: VITAL SIGNS: Blood pressure 142/57, pulse is 86, temperature is 99. GENERAL APPEARANCE: The patient is lying down in bed. He does mouth breathing. He is hard to wake up. CHEST: Clear. CARDIOVASCULAR: S1 and S2 heard. NEUROLOGICAL: He wakes up and tries to make eye contact and tries to follow commands. He is not talking much today. Pupils are reactive. Tongue, tongue midline. No facial asymmetry. Motor, he has hand informal waiter/waitress on the right side is intact and tries to follow commands, but moves his left upper and lower extremities. IMPRESSION: The patient with altered mental status and encephalopathy, likely due to Parkinson's dementia and hospitalization and him having a gastrointestinal bleed and being ill. At this time, his altered mental status is slowly improving. We will wait for the patient to be more stable before MRI can be done. For now, continue his current medications including Seroquel and levodopa. I will request Dr. Guevara to follow up on the patient. Job ID: [id number] MTDD
--- NOTE | 2018-11-19 12:58 | PRG ---
DATE OF SERVICE: 11/19/2018 SUBJECTIVE: Mr. Roman had no bowel movements since yesterday. Certainly, no melena or hematochezia. No complaint of abdominal pain. His mental status has continued to wax and wane. Per nursing staff, he has been less agitated but more sleepy. His H and H has been stable. He did receive 1 unit of RBC transfusion yesterday and hemoglobin came up from 7.6 to 8.4. OBJECTIVE: VITAL SIGNS: Temperature 98.5, pulse 71, blood pressure 112/61, 96% oxygen saturation on room air. GENERAL: Somnolent, does not arouse to palpation of the abdomen or to voice. HEART: Regular rate and rhythm. LUNGS: Clear to auscultation bilaterally. ABDOMEN: Soft, nontender to palpation. EXTREMITIES: No peripheral edema. LABORATORY STUDIES: WBC 15.8, hemoglobin 8.4, platelets 136. INR 1.2. Sodium down to 151, potassium 3.8, BUN 40, creatinine 1.12, glucose 141. ASSESSMENT AND PLAN: Gastrointestinal bleeding, unclear source. Tagged RBC scan suggested bleeding location in the right lower quadrant and loops of small bowel. The patient's overt bleeding has resolved after reversal of his anticoagulation and hemoglobin is currently stable. Dr. Raygoza had recommended considering colonoscopy at some point to complete the endoscopic workup. Still awaiting better improvement in the patient's mental status prior to attempting bowel preparation. Job ID: [id number]
--- NOTE | 2018-11-19 13:10 | PDOC.PN ---
- Subjective Encounter Start Date: 11/19/18 Encounter Start Time: 07:40 Subjective: lethargic, not in distress -: per staff he is conversing better, not oriented - Objective Resuscitation Status - Order Detail: 11/15/18 17:01 Resuscitation Status Routine Resuscitation Status: FULL: Full Resuscitation Discussed with: Patient and who is SAMMY LÓPEZ Reviewed: Yes Vital Signs & Weight: Vital Signs (12 hours) Temp Pulse Resp BP Pulse Ox 11/19/18 12:00 98.2 F 11/19/18 11:00 98.5 F 11/19/18 08:00 100 11/19/18 07:00 99 F 11/19/18 04:00 98.8 F 11/19/18 02:00 98.9 F 92 24 H 130/90 Weight Weight 213 lb 13.574 oz Most Recent Monitor Data Heart Rate from ECG 93 NIBP 146/71 NIBP BP-Mean 96 Respiration from ECG 19 SpO2 100 I&O: 11/18/18 11/19/18 11/20/18 06:59 06:59 06:59 Intake Total 1744 1870 330 Output Total 1445 687 Balance 299 1183 330 Result Diagrams: 11/19/18 04:45 11/19/18 04:45 Phys Exam - Physical Examination HEENT: PERRLA dry mucosa Neck: no JVD, supple Respiratory: no wheezing, no rales Cardiovascular: RRR, no significant murmur Gastrointestinal: soft, non-tender, positive bowel sounds Musculoskeletal: no edema, pulses present Neurological: non-focal, moves all 4 limbs Dx/Plan (1) GI bleed Code(s): K92.2 - GASTROINTESTINAL HEMORRHAGE, UNSPECIFIED Status: Acute Comment: Bleeding scan showed active bleeding in RLQ into small bowel 11/17/18 (2) Acute blood loss anemia Code(s): D62 - ACUTE POSTHEMORRHAGIC ANEMIA Status: Acute Comment: h/h stable (3) ZEENAT (acute kidney injury) Code(s): N17.9 - ACUTE KIDNEY FAILURE, UNSPECIFIED Status: Acute (4) Acute encephalopathy Code(s): G93.40 - ENCEPHALOPATHY, UNSPECIFIED Status: Acute (5) CAD (coronary artery disease) Code(s): I25.10 - ATHSCL HEART DISEASE OF [place] CORONARY ARTERY W/O ANG PCTRS Status: Chronic Qualifiers: Coronary Disease-Associated Artery/Lesion type: [place] artery [place] vs. transplanted heart: [place] heart Associated angina: without angina Qualified Code(s): I25.10 - Atherosclerotic heart disease of [place] coronary artery without angina pectoris Comment: previous stent (6) Dyslipidemia Code(s): E78.5 - HYPERLIPIDEMIA, UNSPECIFIED Status: Chronic (7) Parkinsons disease Code(s): G20 - PARKINSON'S DISEASE Status: Chronic (8) Paroxysmal atrial fibrillation Code(s): I48.0 - PAROXYSMAL ATRIAL FIBRILLATION Status: Chronic (9) Hypertension Code(s): I10 - ESSENTIAL (PRIMARY) HYPERTENSION Status: Chronic Qualifiers: Hypertension type: essential hypertension Qualified Code(s): I10 - Essential (primary) hypertension - Plan still encephalopathic but slightly better -: encourage po intake including fluids -: oob to chair and PT on bed as tolerated -: continue protonix, sinemet, seroquel -: prognosis guarded. Has severe deconditioning * . Review of Systems - Medications/Allergies Allergies/Adverse Reactions: Allergies Allergy/AdvReac Type Severity Reaction Status Date / Time No Known Allergies Allergy Verified 11/15/18 22:24 Medications: Current Medications Acetaminophen (Tylenol) 650 mg PO Q4H PRN PRN Reason: Headache/Fever/Mild Pain (1-3) Last Admin: 11/16/18 18:36 Dose: 650 mg Acetaminophen (Tylenol) 650 mg [place] Q4H PRN PRN Reason: Headache/Fever/Mild Pain (1-3) Carbidopa/Levodopa (Sinemet 25-100) 2 tab PO 0700,1200,1700 [facility] Last Admin: 11/19/18 12:13 Dose: 2 tab Guaifenesin/Dextromethorphan (Robitussin Dm) 15 ml PO Q4H PRN PRN Reason: Cough Haloperidol Lactate (Haldol) 5 mg IM Q4H PRN PRN Reason: Agitation Last Admin: 11/19/18 01:35 Dose: 5 mg Dextrose/Water (D5w) 1,000 mls @ 100 mls/hr IV .Q10H [facility] Last Admin: 11/19/18 07:44 Dose: 1,000 mls Ondansetron HCl (Zofran Odt) 4 mg PO Q6H PRN PRN Reason: Nausea/Vomiting Ondansetron HCl (Zofran) 4 mg IVP Q6H PRN PRN Reason: Nausea/Vomiting Pantoprazole Sodium (Protonix) 40 mg IVP Q12HR [facility] Last Admin: 11/19/18 07:43 Dose: 40 mg Quetiapine Fumarate (Seroquel) 50 mg PO HS [facility] Last Admin: 11/18/18 19:40 Dose: 50 mg Senna/Docusate Sodium (Senokot S) 2 tab PO BID PRN PRN Reason: Constipation Sodium Chloride (Flush - Normal Saline) 10 ml IVF PRN PRN PRN Reason: Saline Flush
--- NOTE | 2018-11-19 15:13 | PRG ---
DATE OF SERVICE: 11/19/2018 SUBJECTIVE: Sarmad Roman is perhaps a little better today. He would mumble when he was asleep, but if he was awakened he could quickly tell me he was at [facility] in [place]. OBJECTIVE: VITAL SIGNS: His heart rate is in the 70s, blood pressure 127/66, and respiratory rate is in the teens. LUNGS: Clear. HEART: Regular rhythm, S1 and S2 are normal. ABDOMEN: Soft and nontender. EXTREMITIES: Without clubbing, cyanosis, or edema. Moves all extremities equally. LABORATORY DATA: White count 15.8, hemoglobin 8.4, and platelets 136. Sodium 151, potassium 3.8, chloride 121, bicarb 23, BUN 40, and creatinine 1.12. IMPRESSION AND PLAN: 1. Gastrointestinal blood loss, stabilizing. 2. Encephalopathy, likely simply related to his critical illness. 3. Parkinson disease. 4. Mild hyperosmolar state that is slowly being corrected, I do not feel this is contributing to his encephalopathy. 5. Deconditioning. He was quite active prior to this, so hopefully he will return to that level of activity. I met with the and answered all the questions. Job ID: [id number]
[2018-11-20] MEDS: Dextrose 5% in Water 1,000 ML IV SCH (03:56)
[2018-11-20 08:12] LABS: #Lymphocytes 0.6 thou/uL (1.20-3.40); #Neutrophils 10.7 thou/uL (1.40-6.50); %Eosinophils 0.4 % (0.0-10.0); %Lymphocytes 4.6 % (21.0-51.0); Hemoglobin 9.1 g/dL (14.0-18.0); Mean Corpuscular HGB CONC 32.8 g/dL (32.0-36.0); Mean Corpuscular Hemoglobin 31.8 pg (27.0-31.0); Mean Corpuscular Volume 96.8 fL (78.0-98.0); Mean Platelet Volume 8.3 fL (7.4-10.4); Platelet Count 143 thou/uL (130-400); Red Blood Cell (RBC) Count 2.87 mill/uL (4.70-6.10); White Blood Cell (WBC) Count 12.3 thou/uL (4.8-10.8)
[2018-11-20] MEDS: Pantoprazole 40 MG VIAL IVP SCH ×2 (08:16→20:18)
[2018-11-20] MEDS: Carbidopa/Levodopa 25-100 mg Tablet PO SCH ×3 (08:16→17:10)
[2018-11-20 08:35] LABS: Anion Gap 8 mmol/L (10-20); BUN (Urea Nitrogen) 37 mg/dL (8.4-25.7); Calc. Creatinine Clearance 88 mL/min (70-130); Calcium 8.1 mg/dL (7.8-10.44); Carbon Dioxide 24 mmol/L (23-31); Chloride 116 mmol/L (98-107); Estimated GFR-MDRD 74; Glucose 124 mg/dL (83-110); Potassium 3.4 mmol/L (3.5-5.1); Sodium 145 mmol/L (136-145)
--- NOTE | 2018-11-20 08:53 | PRG ---
DATE OF SERVICE: 11/20/2018 SUBJECTIVE: This morning, awake, alert, and responsive. He is eager to go home, he tells me. OBJECTIVE: VITAL SIGNS: Saturations are 100% on room air, temperature 98, blood pressure 123/86, pulse 88, and respirations 18. CHEST: Decreased breath sounds. No wheezing. CARDIAC: Normal S1, S2. ABDOMEN: Negative mass. IMPRESSION: 1. Status post gastrointestinal bleed, lower stable. 2. Parkinson's disease with encephalopathy. PLAN: To be transferred out of the ICU. Otherwise, continue supportive care, PT. We will follow. Job ID: [id number]
--- NOTE | 2018-11-20 13:01 | PDOC.PN ---
- Subjective Encounter Start Date: 11/20/18 Encounter Start Time: 07:35 Subjective: is sitting in chair and eating breakfast -: is fully oriented - Objective Resuscitation Status - Order Detail: 11/15/18 17:01 Resuscitation Status Routine Resuscitation Status: FULL: Full Resuscitation Discussed with: Patient and who is SAMMY LÓPEZ Reviewed: Yes Vital Signs & Weight: Vital Signs (12 hours) Temp Pulse Ox 11/20/18 07:41 100 11/20/18 07:00 98.2 F 11/20/18 04:00 98.5 F Weight Admit Weight 213 lb Weight 213 lb 13.574 oz Most Recent Monitor Data Heart Rate from ECG 71 NIBP 127/74 NIBP BP-Mean 91 Respiration from ECG 19 SpO2 100 I&O: 11/19/18 11/20/18 11/21/18 06:59 06:59 06:59 Intake Total 1870 3334 Output Total 687 652 400 Balance 1183 2682 -400 Result Diagrams: 11/20/18 08:03 11/20/18 08:03 Phys Exam - Physical Examination HEENT: PERRLA, moist MMs Neck: no JVD, supple Respiratory: no wheezing, no rales Cardiovascular: RRR, no significant murmur Gastrointestinal: soft, non-tender, positive bowel sounds Musculoskeletal: no edema, pulses present Neurological: non-focal, moves all 4 limbs Psychiatric: normal affect, A&O x 3 Dx/Plan (1) GI bleed Code(s): K92.2 - GASTROINTESTINAL HEMORRHAGE, UNSPECIFIED Status: Resolved Comment: Bleeding scan showed active bleeding in RLQ into small bowel 11/17/18 (2) Acute blood loss anemia Code(s): D62 - ACUTE POSTHEMORRHAGIC ANEMIA Status: Acute Comment: h/h stable (3) ZEENAT (acute kidney injury) Code(s): N17.9 - ACUTE KIDNEY FAILURE, UNSPECIFIED Status: Acute Comment: resolving (4) Acute encephalopathy Code(s): G93.40 - ENCEPHALOPATHY, UNSPECIFIED Status: Resolved (5) CAD (coronary artery disease) Code(s): I25.10 - ATHSCL HEART DISEASE OF [place] CORONARY ARTERY W/O ANG PCTRS Status: Chronic Qualifiers: Coronary Disease-Associated Artery/Lesion type: [place] artery [place] vs. transplanted heart: [place] heart Associated angina: without angina Qualified Code(s): I25.10 - Atherosclerotic heart disease of [place] coronary artery without angina pectoris Comment: previous stent (6) Dyslipidemia Code(s): E78.5 - HYPERLIPIDEMIA, UNSPECIFIED Status: Chronic (7) Parkinsons disease Code(s): G20 - PARKINSON'S DISEASE Status: Chronic (8) Paroxysmal atrial fibrillation Code(s): I48.0 - PAROXYSMAL ATRIAL FIBRILLATION Status: Chronic (9) Hypertension Code(s): I10 - ESSENTIAL (PRIMARY) HYPERTENSION Status: Chronic Qualifiers: Hypertension type: essential hypertension Qualified Code(s): I10 - Essential (primary) hypertension - Plan hemostable -: cognitively back to normal self this am -: encourage po intake -: tx to imcu -: renal function and h/h are stable * . continue sinemet, seroquel, protonix. PT to mobilize as tolerated, might need placement Review of Systems - Medications/Allergies Allergies/Adverse Reactions: Allergies Allergy/AdvReac Type Severity Reaction Status Date / Time No Known Allergies Allergy Verified 11/15/18 22:24 Medications: Current Medications Acetaminophen (Tylenol) 650 mg PO Q4H PRN PRN Reason: Headache/Fever/Mild Pain (1-3) Last Admin: 11/16/18 18:36 Dose: 650 mg Acetaminophen (Tylenol) 650 mg MD Q4H PRN PRN Reason: Headache/Fever/Mild Pain (1-3) Carbidopa/Levodopa (Sinemet 25-100) 2 tab PO 0700,1200,1700 [facility] Last Admin: 11/20/18 12:41 Dose: 2 tab Guaifenesin/Dextromethorphan (Robitussin Dm) 15 ml PO Q4H PRN PRN Reason: Cough Haloperidol Lactate (Haldol) 5 mg IM Q4H PRN PRN Reason: Agitation Last Admin: 11/19/18 01:35 Dose: 5 mg Ondansetron HCl (Zofran Odt) 4 mg PO Q6H PRN PRN Reason: Nausea/Vomiting Ondansetron HCl (Zofran) 4 mg IVP Q6H PRN PRN Reason: Nausea/Vomiting Pantoprazole Sodium (Protonix) 40 mg IVP Q12HR [facility] Last Admin: 11/20/18 08:16 Dose: 40 mg Quetiapine Fumarate (Seroquel) 50 mg PO HS [facility] Last Admin: 11/19/18 21:06 Dose: 50 mg Senna/Docusate Sodium (Senokot S) 2 tab PO BID PRN PRN Reason: Constipation Sodium Chloride (Flush - Normal Saline) 10 ml IVF PRN PRN PRN Reason: Saline Flush
--- NOTE | 2018-11-20 19:30 | PRG ---
DATE OF SERVICE: 11/20/2018 SUBJECTIVE: Mr. Roman is a little more alert now. He is not quite as confused. He had one stool today, which was melena to maroon. OBJECTIVE: VITAL SIGNS: Temperature is 98, pulse 68 to 73, and blood pressure 127/74. LUNGS: Clear. HEART: Regular rate and rhythm. ABDOMEN: Soft and nontender. EXTREMITIES: No clubbing, cyanosis, or edema. LABORATORY DATA: White count is 12.3, hemoglobin 9.1, and platelet count 143. INR 1.2 on the 14th. Sodium 145, potassium 3.4, chloride 116, and BUN and creatinine are 37 and 0.9. ASSESSMENT AND PLAN: Gastrointestinal hemorrhage of unclear etiology. Upper GI endoscopy was negative. He was supratherapeutic on Xarelto at the time of presentation. The tagged scan showed bleeding in his distal small bowel. We have held off on colonoscopy to this date secondary to severe confusion, but if he continues to improve in that matter we consider colonoscopy tomorrow. His last colonoscopy was in 2012, at which time, he had polyps removed that were benign. We would continue PPI. We will follow along with you. If there is acute hemorrhage, CT angiography may be considered over the same period. Job ID: [id number]
[2018-11-21 06:10] LABS: #Eosinphils 0.1 thou/uL (0.0-0.7); #Lymphocytes 0.5 thou/uL (1.20-3.40); #Monocytes 0.8 thou/uL (0.11-0.59); #Neutrophils 9.6 thou/uL (1.40-6.50); %Eosinophils 0.7 % (0.0-10.0); %Lymphocytes 4.9 % (21.0-51.0); %Monocytes 7.7 % (0.0-10.0); %Neutrophils 86.7 % (42.0-75.0); Hemoglobin 8.8 g/dL (14.0-18.0); Mean Corpuscular HGB CONC 32.3 g/dL (32.0-36.0); Mean Corpuscular Hemoglobin 31.1 pg (27.0-31.0); Mean Corpuscular Volume 96.2 fL (78.0-98.0); Platelet Count 151 thou/uL (130-400); RBC Distribution Width 14.7 % (11.5-14.5); Red Blood Cell (RBC) Count 2.83 mill/uL (4.70-6.10)
[2018-11-21 06:14] LABS: Anion Gap 8 mmol/L (10-20); BUN (Urea Nitrogen) 35 mg/dL (8.4-25.7); Calc. Creatinine Clearance 80 mL/min (70-130); Carbon Dioxide 24 mmol/L (23-31); Chloride 114 mmol/L (98-107); Estimated GFR-MDRD 66; Glucose 107 mg/dL (83-110); Potassium 3.1 mmol/L (3.5-5.1); Sodium 143 mmol/L (136-145)
[2018-11-21] MEDS: Carbidopa/Levodopa 25-100 mg Tablet PO SCH ×3 (08:17→16:35)
[2018-11-21] MEDS: Pantoprazole 40 MG VIAL IVP SCH ×2 (08:17→21:13)
--- NOTE | 2018-11-21 09:14 | PRG ---
DATE OF SERVICE: 11/21/2018 SUBJECTIVE: Sarmad Roman, this morning, is less encephalopathic. No shortness of breath. No coughing. No wheezing. OBJECTIVE: VITAL SIGNS: Sats are 100% on room air, blood pressure 120/58, pulse 80, respiratory rate 18, and afebrile. CHEST: Decreased breath sounds. No wheezing. CARDIAC: Normal S1 and S2. No gallops. ABDOMEN: No masses. IMPRESSION: 1. Lower gastrointestinal bleed. Stable H and H. 2. Parkinson's disease. 3. Encephalopathy. PLAN: Consultation for lower endoscopy if bleeding does not cease, otherwise continue supportive care. We will follow while in the MICU. Job ID: [id number]
--- NOTE | 2018-11-21 13:42 | PDOC.PN ---
- Subjective Encounter Start Date: 11/21/18 Encounter Start Time: 12:25 Subjective: awake, oriented well -: is sitting in chair, at bedside - Objective Resuscitation Status - Order Detail: 11/15/18 17:01 Resuscitation Status Routine Resuscitation Status: FULL: Full Resuscitation Discussed with: Patient and who is SAMMY LÓPEZ Reviewed: Yes Vital Signs & Weight: Vital Signs (12 hours) Temp Pulse Ox 11/21/18 11:20 98.8 F 11/21/18 08:04 98 11/21/18 07:43 97 11/21/18 07:04 99.4 F 11/21/18 04:18 97.9 F Weight Admit Weight 213 lb Weight 213 lb 13.574 oz Most Recent Monitor Data Heart Rate from ECG 67 NIBP 146/54 NIBP BP-Mean 84 Respiration from ECG 15 SpO2 100 I&O: 11/20/18 11/21/18 11/22/18 06:59 06:59 06:59 Intake Total 3334 Output Total 652 400 Balance 2682 -400 Result Diagrams: 11/21/18 05:30 11/21/18 05:30 Additional Labs: Accuchecks 11/20/18 16:21 POC Glucose 118 H Phys Exam - Physical Examination HEENT: PERRLA, moist MMs Neck: no JVD, supple Respiratory: no wheezing, no rales Cardiovascular: RRR, no significant murmur Gastrointestinal: soft, non-tender, positive bowel sounds Musculoskeletal: no edema, pulses present Neurological: non-focal, moves all 4 limbs Psychiatric: normal affect, A&O x 3 Dx/Plan (1) GI bleed Code(s): K92.2 - GASTROINTESTINAL HEMORRHAGE, UNSPECIFIED Status: Resolved Comment: Bleeding scan showed active bleeding in RLQ into small bowel 11/17/18 (2) Acute blood loss anemia Code(s): D62 - ACUTE POSTHEMORRHAGIC ANEMIA Status: Acute Comment: h/h stable (3) ZEENAT (acute kidney injury) Code(s): N17.9 - ACUTE KIDNEY FAILURE, UNSPECIFIED Status: Acute Comment: resolving (4) Acute encephalopathy Code(s): G93.40 - ENCEPHALOPATHY, UNSPECIFIED Status: Resolved (5) CAD (coronary artery disease) Code(s): I25.10 - ATHSCL HEART DISEASE OF [place] CORONARY ARTERY W/O ANG PCTRS Status: Chronic Qualifiers: Coronary Disease-Associated Artery/Lesion type: [place] artery [place] vs. transplanted heart: [place] heart Associated angina: without angina Qualified Code(s): I25.10 - Atherosclerotic heart disease of [place] coronary artery without angina pectoris Comment: previous stent (6) Dyslipidemia Code(s): E78.5 - HYPERLIPIDEMIA, UNSPECIFIED Status: Chronic (7) Parkinsons disease Code(s): G20 - PARKINSON'S DISEASE Status: Chronic (8) Paroxysmal atrial fibrillation Code(s): I48.0 - PAROXYSMAL ATRIAL FIBRILLATION Status: Chronic (9) Hypertension Code(s): I10 - ESSENTIAL (PRIMARY) HYPERTENSION Status: Chronic Qualifiers: Hypertension type: essential hypertension Qualified Code(s): I10 - Essential (primary) hypertension - Plan PT to mobilize as tolerated -: may need placement based on PT eval results -: for egd/colonoscopy in am -: continue sinemet, protonix, seroquel -: hemostable * . Review of Systems - Medications/Allergies Allergies/Adverse Reactions: Allergies Allergy/AdvReac Type Severity Reaction Status Date / Time No Known Allergies Allergy Verified 11/15/18 22:24 Medications: Current Medications Acetaminophen (Tylenol) 650 mg PO Q4H PRN PRN Reason: Headache/Fever/Mild Pain (1-3) Last Admin: 11/16/18 18:36 Dose: 650 mg Acetaminophen (Tylenol) 650 mg [place] Q4H PRN PRN Reason: Headache/Fever/Mild Pain (1-3) Carbidopa/Levodopa (Sinemet 25-100) 2 tab PO 0700,1200,1700 [facility] Last Admin: 11/21/18 12:59 Dose: 2 tab Guaifenesin/Dextromethorphan (Robitussin Dm) 15 ml PO Q4H PRN PRN Reason: Cough Haloperidol Lactate (Haldol) 5 mg IM Q4H PRN PRN Reason: Agitation Last Admin: 11/19/18 01:35 Dose: 5 mg Ondansetron HCl (Zofran Odt) 4 mg PO Q6H PRN PRN Reason: Nausea/Vomiting Ondansetron HCl (Zofran) 4 mg IVP Q6H PRN PRN Reason: Nausea/Vomiting Pantoprazole Sodium (Protonix) 40 mg IVP Q12HR [facility] Last Admin: 11/21/18 08:17 Dose: 40 mg Quetiapine Fumarate (Seroquel) 50 mg PO HS [facility] Last Admin: 11/20/18 20:17 Dose: 50 mg Senna/Docusate Sodium (Senokot S) 2 tab PO BID PRN PRN Reason: Constipation Sodium Chloride (Flush - Normal Saline) 10 ml IVF PRN PRN PRN Reason: Saline Flush Last Admin: 11/20/18 20:18 Dose: 10 ml
[2018-11-21] MEDS ORDERED: GoLYTELY 4,000 ml Bottle PO SCH (18:45)
--- NOTE | 2018-11-21 23:52 | CON ---
DATE OF CONSULTATION: SUBJECTIVE: Mr. Roman is more alert today. He has had no bleeding. The nurse said that he had one black stool. OBJECTIVE: VITAL SIGNS: Temperature is 99, pulse 68, blood pressure 129/58. GENERAL: He is sitting up in bed. He is much more alert. ABDOMEN: Soft and nontender. LABORATORY DATA: White count is down to 11.0, hemoglobin stable at 8.8, platelet count 151. BMP is normal except for his potassium of 3.1, BUN and creatinine are 35 and 1.08. ASSESSMENT: 1. Gastrointestinal bleed, resolved, normal EGD. Tagged scan showed possible small bowel bleeding. 2. Stable hemoglobin. 3. Parkinson's. 4. Dementia, acute, now resolved back to baseline. PLAN: We will advance diet. Ask for repeating colonoscopy and his last exam was in 03/2013. He is overdue by about a few years. For repeat colonoscopy, we will go ahead and give him one more day to stabilize and improve his mobility and consider prepping him for a colonoscopy on . Job ID: [id number]
[2018-11-22 05:31] LABS: #Eosinphils 0.1 thou/uL (0.0-0.7); #Lymphocytes 0.5 thou/uL (1.20-3.40); #Monocytes 0.8 thou/uL (0.11-0.59); #Neutrophils 10.1 thou/uL (1.40-6.50); %Eosinophils 0.6 % (0.0-10.0); %Lymphocytes 4.4 % (21.0-51.0); %Monocytes 7.1 % (0.0-10.0); %Neutrophils 87.9 % (42.0-75.0); Hemoglobin 8.8 g/dL (14.0-18.0); Mean Corpuscular HGB CONC 32.7 g/dL (32.0-36.0); Mean Corpuscular Volume 94.9 fL (78.0-98.0); Mean Platelet Volume 8.6 fL (7.4-10.4); Platelet Count 155 thou/uL (130-400); RBC Distribution Width 14.6 % (11.5-14.5); Red Blood Cell (RBC) Count 2.83 mill/uL (4.70-6.10); White Blood Cell (WBC) Count 11.5 thou/uL (4.8-10.8)
[2018-11-22 06:37] LABS: Anion Gap 12 mmol/L (10-20); BUN (Urea Nitrogen) 29 mg/dL (8.4-25.7); Calc. Creatinine Clearance 87 mL/min (70-130); Calcium 7.9 mg/dL (7.8-10.44); Carbon Dioxide 24 mmol/L (23-31); Chloride 112 mmol/L (98-107); Estimated GFR-MDRD 73; Glucose 101 mg/dL (83-110); Sodium 145 mmol/L (136-145)
[2018-11-22 06:43] LABS: Potassium 2.9 mmol/L (3.5-5.1)
[2018-11-22] MEDS ORDERED: ISOVUE-370 76%-LOCM 1 ML ONE (08:17)
[2018-11-22] MEDS ORDERED: Iopamidol 370 76% 50 ML VIAL FS ONE (08:17)
[2018-11-22] MEDS ORDERED: Potassium Chloride 40 MEQ in Premix Bag 1 BAG IVPB SCH (08:45)
[2018-11-22] MEDS: Carbidopa/Levodopa 25-100 mg Tablet PO SCH ×3 (09:27→17:34)
[2018-11-22] MEDS: Pantoprazole 40 MG VIAL IVP SCH ×2 (09:32→21:07)
[2018-11-22] MEDS ORDERED: PROPOFOL 200 MG/20 ML VIAL ONE (09:44)
--- NOTE | 2018-11-22 10:13 | PRG ---
DATE OF SERVICE: 11/22/2018 SUBJECTIVE: This morning, he is awake, alert, and responsive. No pain or discomfort. OBJECTIVE: VITAL SIGNS: Blood pressure 162/68, pulse 80, respiratory rate 18. GENERAL: Awake, alert, responsive. CHEST: Decreased breath sounds without any wheezing. CARDIAC: Normal S1 and S2. No gallops. ABDOMEN: Soft. LABORATORY DATA: H and H of 8 and 26. His lytes are normal. Potassium 2.9. IMPRESSION: 1. No gastrointestinal bleed for colonoscopy today. 2. Parkinson disease. 3. Encephalopathy. PLAN: The patient appears to be at his baseline. He is to go for colonoscopy. We will follow while in the MICU. Job ID: [id number]
[2018-11-22] MEDS ORDERED: Potassium Chloride 40 MEQ in Sodium Chloride 0.9% 250 ML 250 ML IVPB SCH (12:45)
--- NOTE | 2018-11-22 13:55 | OP ---
DATE OF PROCEDURE: 11/22/2018 PROCEDURE PERFORMED: Colonoscopy with snare polypectomy. PREMEDICATION: Given by Anesthesiology Department. PREPROCEDURE DIAGNOSIS: GI bleed. POSTPROCEDURE DIAGNOSES: 1. Ascending colon polyp. 2. Ascending colon lipoma. 3. Sigmoid diverticulosis. 4. No obvious source of bleeding, suboptimal prep. PROCEDURE IN DETAIL: Written consents were obtained prior to procedure. After adequate sedation, rectal exam was performed and was normal. The endoscope was advanced to the cecum. The quality of the bowel prep was suboptimal with still liquid dark stool. Despite irrigation and suctioning, small polyps less than 6 mm could be missed. The ileocecal valve appeared normal. The endoscope was able to visualize the distal ileum, only a very small section and appeared normal. In the proximal ascending colon, a lipoma was noted. In the mid ascending colon, a 6 mm pedunculated polyp was noted and was removed with snare electrocautery with good hemostasis and retrieved. The ascending, hepatic flexure, transverse colon, splenic flexure, and descending colon appeared normal. Scattered diverticula was noted in the sigmoid colon. Retroflexion in the rectal vault shows small internal hemorrhoids. No obvious source of bleeding was identified. ASSESSMENT: 1. Suboptimal prep. 2. Normal distal ileum. 3. Ascending colon lipoma. 4. Ascending colon polyp, removed. 5. Sigmoid diverticulosis coli. PLAN: 1. Plan is to obtain abdominal pelvic CT. 2. Consider outpatient small-bowel capsule if he has evidence of recurrent bleeding in the future. Job ID: [id number]
--- NOTE | 2018-11-22 16:30 | CT ---
CT ABDOMEN AND PELVIS WITH IV AND ORAL CONTRAST: Date; 11/22/18 HISTORY: 77-year-old male with GI bleed. Negative upper and lower endoscopies. COMPARISON: 05/26/14. FINDINGS: There are small bilateral pleural effusions with adjacent infiltrates/atelectatic changes. The patien t is post cholecystectomy. Postop changes are also seen in the inferior aspect of the right kidney. E xophytic left renal cyst is again seen. The liver, spleen, pancreas, and adrenal glands are unremarka ble. No free air, free fluid, or lymphadenopathy seen in the abdomen or pelvis. There are vascular calcifi cations without evidence of aneurysmal dilatation of the abdominal aorta. Degenerative changes are pr esent in the spine. The small bowel loops are not abnormally dilated. There is sigmoid diverticulosis without diverticulitis. There is mild enlargement of the prostate gland. IMPRESSION: 1. Bilateral small pleural effusions with adjacent atelectasis changes/infiltrates. 2. Left renal cyst. 3. Sigmoid diverticulosis. 4. Mild prostatic enlargement. POS: [facility]
--- NOTE | 2018-11-22 16:59 | ULT ---
RIGHT UPPER EXTREMITY VASCULAR ULTRASOUND WITH DOPPLER: HISTORY: Right upper extremity edema. COMPARISON: None. TECHNIQUE: Raygoza-scale, color-flow, and Doppler imaging with spectral wave-form analysis was performed of the [facility] upper extremity venous system. FINDINGS: There is patency and flow in the internal jugular vein, subclavian vein, and axillary vein. There is compressibility in the brachial vein, basilic vein, radial vein, and ulnar vein. The distal cephali c vein is patent. There is echogenic material with lack of compressibility in the proximal and mid c ephalic vein, down to the level of the antecubital fossa. IMPRESSION: Thrombus in the right cephalic vein. POS: [facility]
--- NOTE | 2018-11-22 21:52 | PDOC.PN ---
- Subjective Encounter Start Date: 11/22/18 Encounter Start Time: 11:00 Confused per . No other complaints per patient. - Objective Resuscitation Status - Order Detail: 11/15/18 17:01 Resuscitation Status Routine Resuscitation Status: FULL: Full Resuscitation Discussed with: Patient and who is MPOAnkush Vital Signs & Weight: Vital Signs (12 hours) Temp 11/22/18 19:22 97.8 F 11/22/18 15:27 99.2 F Weight Admit Weight 213 lb Weight 213 lb 13.574 oz Most Recent Monitor Data Heart Rate from ECG 74 NIBP 132/72 NIBP BP-Mean 92 Respiration from ECG 12 SpO2 96 I&O: 11/21/18 11/22/18 11/23/18 06:59 06:59 06:59 Intake Total 1210 Output Total 400 Balance -400 1210 Result Diagrams: 11/22/18 04:59 11/22/18 04:59 Phys Exam - Physical Examination Constitutional: NAD Respiratory: no wheezing, no rales, no rhonchi, clear to auscultation bilateral Cardiovascular: RRR, no rub Gastrointestinal: soft, non-tender, no distention, positive bowel sounds RUE generalized edema. Scattered bruising. Neurological: non-focal Deviation from normal: Confused, pleasant. Skin: no rash Dx/Plan (1) CAD (coronary artery disease) Code(s): I25.10 - ATHSCL HEART DISEASE OF [place] CORONARY ARTERY W/O ANG PCTRS Status: Chronic Qualifiers: Coronary Disease-Associated Artery/Lesion type: [place] artery [place] vs. transplanted heart: [place] heart Associated angina: without angina Qualified Code(s): I25.10 - Atherosclerotic heart disease of [place] coronary artery without angina pectoris Comment: previous stent (2) Dyslipidemia Code(s): E78.5 - HYPERLIPIDEMIA, UNSPECIFIED Status: Chronic (3) Parkinsons disease Code(s): G20 - PARKINSON'S DISEASE Status: Chronic (4) GI bleed Code(s): K92.2 - GASTROINTESTINAL HEMORRHAGE, UNSPECIFIED Status: Resolved Comment: Bleeding scan showed active bleeding in RLQ into small bowel 11/17/18 (5) Atrial fibrillation Code(s): I48.91 - UNSPECIFIED ATRIAL FIBRILLATION Status: Chronic (6) Hypertension Code(s): I10 - ESSENTIAL (PRIMARY) HYPERTENSION Status: Chronic Qualifiers: Hypertension type: essential hypertension Qualified Code(s): I10 - Essential (primary) hypertension (7) ZEENAT (acute kidney injury) Code(s): N17.9 - ACUTE KIDNEY FAILURE, UNSPECIFIED Status: Acute Comment: resolving (8) Acute blood loss anemia Code(s): D62 - ACUTE POSTHEMORRHAGIC ANEMIA Status: Acute Comment: h/h stable (9) Acute encephalopathy Code(s): G93.40 - ENCEPHALOPATHY, UNSPECIFIED Status: Resolved (10) Hypokalemia Code(s): E87.6 - HYPOKALEMIA Status: Acute - Plan * RUE doppler. * CT abd results pending. * May need outpatient capsule endoscopy. * PT. * encephalopathy prevents safe discharge. * Continue PT.
[2018-11-22] MEDS: Haloperidol Lactate 5 MG/ML VIAL IM PRN (23:08)
[2018-11-23 06:03] LABS: #Lymphocytes 0.4 thou/uL (1.20-3.40); #Monocytes 0.7 thou/uL (0.11-0.59); #Neutrophils 5.8 thou/uL (1.40-6.50); %Eosinophils 0.4 % (0.0-10.0); %Monocytes 10.6 % (0.0-10.0); Hemoglobin 8.3 g/dL (14.0-18.0); Mean Corpuscular HGB CONC 31.5 g/dL (32.0-36.0); Mean Corpuscular Hemoglobin 29.9 pg (27.0-31.0); Mean Corpuscular Volume 94.9 fL (78.0-98.0); Mean Platelet Volume 8.5 fL (7.4-10.4); Platelet Count 139 thou/uL (130-400); RBC Distribution Width 14.8 % (11.5-14.5); Red Blood Cell (RBC) Count 2.76 mill/uL (4.70-6.10)
[2018-11-23 06:24] LABS: Anion Gap 11 mmol/L (10-20); BUN (Urea Nitrogen) 21 mg/dL (8.4-25.7); Calc. Creatinine Clearance 94 mL/min (70-130); Carbon Dioxide 24 mmol/L (23-31); Chloride 113 mmol/L (98-107); Estimated GFR-MDRD 80; Glucose 100 mg/dL (83-110); Potassium 3.1 mmol/L (3.5-5.1); Sodium 145 mmol/L (136-145)
[2018-11-23] MEDS ORDERED: Potassium Chloride 20 MEQ TAB PO SCH (07:00)
--- NOTE | 2018-11-23 08:17 | PRG ---
DATE OF SERVICE: 11/23/2018 SUBJECTIVE: This morning, the patient is somewhat confused. OBJECTIVE: VITAL SIGNS: Temperature 99, pulse 88, blood pressure 150/78, and respirations 18. CHEST: Decreased breath sounds. No wheezing. CARDIAC: Normal S1, S2. No gallops. ABDOMEN: No masses. LABORATORY DATA: His white count 7000 26. Lytes are normal. Lower GI endoscopy did not reveal any obvious bleeding. He has superficial phlebitis from his IV site. IMPRESSION: 1. Parkinson disease. 2. Encephalopathy. 3. Gastrointestinal bleed, stable. 4. Advanced age. PLAN: Minimize medication. Continue PT supportive care. If bleeding has subsided, disposition as per primary care physician. Job ID: [id number]
[2018-11-23] MEDS: Carbidopa/Levodopa 25-100 mg Tablet PO SCH ×3 (09:16→17:59)
[2018-11-23] MEDS: Pantoprazole 40 MG VIAL IVP SCH ×2 (09:17→20:19)
--- NOTE | 2018-11-23 13:55 | PRG ---
DATE OF SERVICE: 11/23/2018 SUBJECTIVE: Mr. Roman is without complaints today. He had a colonoscopy yesterday with polyp removed, but no bleeding sites identified. The ileum was normal. The CAT scan of the abdomen and pelvis was performed, which showed some small effusions, mild prostatic enlargement, diverticulosis, but no masses or lesions in the small bowel to account for his GI bleed. He was noted to have a thrombus in the right cephalic vein on ultrasound. OBJECTIVE: VITAL SIGNS: Temperature 98.1, blood pressure 143/48, pulse 78. GENERAL: He is sitting comfortably in bed. LUNGS: Clear. ABDOMEN: Soft, nontender. There is no rebound or guarding. LABORATORY DATA: White count is 9.7, hemoglobin is 8.3, and platelet count 139. Sodium 145, potassium 3.1, BUN and creatinine 21 and 0.92. ASSESSMENT: 1. Gastrointestinal bleed. Unclear etiology. Esophagogastroduodenoscopy was normal. Tagged scan showed bleeding in the right abdomen, possibly small bowel, possibly colon. He is known to have severe diverticulosis, was on anticoagulation at that time. Colonoscopy showed no signs of bleeding sites and CAT scan of the abdomen and pelvis showed no signs of small bowel lesions. He has had no bleeding in over 72 hours. 2. Ascending colon polyp, it is tubular adenoma. 3. Parkinson's dementia. RECOMMENDATIONS: 1. Advance diet. 2. We will defer to primary service with regard to timing of restarting anticoagulation, if necessary. If it is deemed necessary, it can be restarted in a few days. If it is for prophylaxis, they are going to treat this clot in his arm and they will restart it now. They will just do that and kind of watch for signs of bleeding and if he bleeds all to be stopped. 3. With regard to polyp, we could consider repeat colonoscopy in 5 years depending on overall health at that time. 4. With regard to the gastrointestinal bleeding, if it recurs, we are happy to re-evaluate, but there are no signs of that now. We will go ahead and sign off. If we can be of any further assistance, please do not hesitate to contact me. Job ID: [id number]
--- NOTE | 2018-11-23 17:25 | PRG ---
DATE OF SERVICE: 11/23/2018 SUBJECTIVE: The patient is feeling significantly better today. His reports he is much more back to normal, although he is still little bit confused at times. His appetite has picked up and he is eating much better today. He is still profoundly weak and she reports that he had difficulty even taking a couple of steps to get to the chair next to the bed. OBJECTIVE: VITAL SIGNS: Temperature 99, pulse 67, and blood pressure 142/48. GENERAL APPEARANCE: Age-appropriate male, in no distress, sitting up in bed, eating lunch aggressively. HEART: Regular rate and rhythm. No murmurs, gallops, or rubs. LUNGS: Clear to auscultation bilaterally. ABDOMEN: Soft, nontender, and nondistended. Positive bowel sounds. No masses. No organomegaly. EXTREMITIES: No cyanosis, clubbing, or edema. SKIN: Warm and dry. NEURO: The patient is awake, alert, interactive, and fairly appropriate. LABORATORY DATA: White count 7.0, hemoglobin 8.3. Potassium is 3.1. IMPRESSION AND PLAN: 1. Gastrointestinal bleed, appears to be likely from the bowel based on bleeding scan. However, no specific source has been identified. Endoscopy showed no source of bleeding. CT abdomen was negative. It appears to be stabilized. 2. Acute blood loss anemia, stable. Continue to monitor. 3. Atrial fibrillation. The patient is off anticoagulation because of the gastrointestinal bleed. It may be restarted at some point in the future. 4. Parkinson disease, stable. 5. Acute kidney injury, improved. 6. Acute encephalopathy, resolving. 7. Hypokalemia, better. Continue to monitor. 8. Dyslipidemia, stable. 9. Coronary artery disease, stable with no evidence of decompensation. 10. Disposition. I talked to the patient and his , at this point, they feel that the patient would benefit from rehab. They have talked to the sample case porter and received a choice letter. They are are hoping to go to the [facility]. Job ID: [id number]
[2018-11-24 05:22] LABS: #Eosinphils 0.1 thou/uL (0.0-0.7); #Lymphocytes 0.7 thou/uL (1.20-3.40); #Neutrophils 6.3 thou/uL (1.40-6.50); %Basophils 0.3 % (0.0-1.0); %Eosinophils 1.7 % (0.0-10.0); %Lymphocytes 8.1 % (21.0-51.0); %Monocytes 12.1 % (0.0-10.0); %Neutrophils 77.7 % (42.0-75.0); Mean Corpuscular HGB CONC 32.1 g/dL (32.0-36.0); Mean Corpuscular Hemoglobin 30.6 pg (27.0-31.0); Mean Corpuscular Volume 95.4 fL (78.0-98.0); Mean Platelet Volume 8.9 fL (7.4-10.4); Platelet Count 148 thou/uL (130-400); RBC Distribution Width 15.1 % (11.5-14.5); Red Blood Cell (RBC) Count 2.95 mill/uL (4.70-6.10); White Blood Cell (WBC) Count 8.2 thou/uL (4.8-10.8)
[2018-11-24 05:43] LABS: Anion Gap 13 mmol/L (10-20); BUN (Urea Nitrogen) 21 mg/dL (8.4-25.7); Calc. Creatinine Clearance 98 mL/min (70-130); Calcium 8.1 mg/dL (7.8-10.44); Carbon Dioxide 21 mmol/L (23-31); Chloride 111 mmol/L (98-107); Estimated GFR-MDRD 84; Glucose 102 mg/dL (83-110); Potassium 3.5 mmol/L (3.5-5.1); Sodium 141 mmol/L (136-145)
[2018-11-24] MEDS: Pantoprazole 40 MG VIAL IVP SCH (09:28)
[2018-11-24] MEDS: Carbidopa/Levodopa 25-100 mg Tablet PO SCH ×3 (09:28→17:51)
--- NOTE | 2018-11-24 09:58 | PRG ---
DATE OF SERVICE: 11/24/2018 SUBJECTIVE: This morning, he is awake, alert, responsive, but still encephalopathic. OBJECTIVE: VITAL SIGNS: Sats are 98, temperature 98, blood pressure 151/60, respiratory rate 18. CHEST: Decreased breath sounds. No wheezing. CARDIAC: Normal S1, S2. No gallops. ABDOMEN: No masses IMPRESSION: 1. Gastrointestinal bleed, stable, status post upper and lower gastrointestinal endoscopy. 2. Parkinson disease. 3. Encephalopathy. PLAN: 1. He can be transferred out of the MICU eventually for placement. 2. Continue PT supportive care. 3. We will follow on the MICU. Job ID: [id number]
--- NOTE | 2018-11-24 11:01 | PDOC.PN ---
- Subjective Encounter Start Date: 11/24/18 (f/u anemia) Encounter Start Time: 10:58 Subjective: Pt c/o headache, reports fall from standing and landing on the back of -: his head. Also states he remains confused. Pt reports pain in neck -: denies any n/v/pain elsewhere - Objective Resuscitation Status - Order Detail: 11/15/18 17:01 Resuscitation Status Routine Resuscitation Status: FULL: Full Resuscitation Discussed with: Patient and who is MPOA Vital Signs & Weight: Vital Signs (12 hours) Temp 11/24/18 07:15 99.8 F H 11/24/18 04:39 99.1 F 11/24/18 00:00 99.1 F Weight Admit Weight 213 lb 13.574 oz Weight 213 lb 13.574 oz Most Recent Monitor Data Heart Rate from ECG 75 NIBP 151/60 NIBP BP-Mean 90 Respiration from ECG 21 SpO2 100 I&O: 11/23/18 11/24/18 11/25/18 06:59 06:59 06:59 Intake Total 230 240 Balance 230 240 Result Diagrams: 11/24/18 04:04 11/24/18 04:04 EKG Reviewed by me: Yes (sinus with frequent pac/pvc) Phys Exam - Physical Examination Constitutional: NAD Respiratory: no wheezing, no rales, no rhonchi, clear to auscultation bilateral Cardiovascular: RRR, no significant murmur Gastrointestinal: soft, non-tender, no distention, positive bowel sounds bilateral LE edema trace to 1+ Neurological: non-focal Deviation from normal: alert and responds to questions, easily falls asleep Skin: no rash Dx/Plan (1) Dyslipidemia Code(s): E78.5 - HYPERLIPIDEMIA, UNSPECIFIED Status: Chronic (2) Acute blood loss anemia Code(s): D62 - ACUTE POSTHEMORRHAGIC ANEMIA Status: Acute Comment: h/h stable (3) Parkinsons disease Code(s): G20 - PARKINSON'S DISEASE Status: Chronic (4) Acute encephalopathy Code(s): G93.40 - ENCEPHALOPATHY, UNSPECIFIED Status: Acute (5) GI bleed Code(s): K92.2 - GASTROINTESTINAL HEMORRHAGE, UNSPECIFIED Status: Resolved Comment: Bleeding scan showed active bleeding in RLQ into small bowel 11/17/18 (6) Hypertension Code(s): I10 - ESSENTIAL (PRIMARY) HYPERTENSION Status: Chronic Qualifiers: Hypertension type: essential hypertension Qualified Code(s): I10 - Essential (primary) hypertension (7) Cephalic vein thrombosis Code(s): I82.619 - ACUTE EMBOLISM AND THROMBOSIS OF SUPERFIC VN UNSP UP EXTREM Status: Acute - Plan * Given head trauma, headache and fall on full anticoagulation - check CT brain without contrast * change protonix to PO * RN to find out current meds - will resume as possible * pt with a fib on Xarelto prior to hospitalization - frequent pac/pvc here - will request Dr. Hunter for evaluation. hold on full anticoagulation for now given GI bleed. Reviewed note from Dr. Otoole - can resume in a few days if for prophylaxis * encephalopathy - from chronic disease and hospitalization/events - monitor for clearing, continue the seroquel for now * * transfer to tele * anticipate d/c to rehab in the next few days * * dvt prophy - scds * gi prophy - once daily ppi * code status full * * reviewed plan of care with patient, no questions or further needs at end of eval.
[2018-11-24] MEDS: Acetaminophen 325 MG TAB PO PRN (13:14)
--- NOTE | 2018-11-24 17:18 | CT ---
HEAD CT NONCONTRAST: 11/24/18 COMPARISON: 04/17/17. INDICATION: Fall one week prior, anticoagulated patient. FINDINGS: There is mild parenchymal volume loss. No intracranial hemorrhage, mass effect or midline shift. Vent ricular system is normal in size. Calvarium is intact. No pneumocephalus. IMPRESSION: No acute intracranial hemorrhage or mass effect. POS: [facility]
[2018-11-24] MEDS: Atorvastatin Calcium 40 MG TAB PO SCH (20:32)
[2018-11-24] MEDS ORDERED: Atorvastatin Calcium 20 MG TAB PO SCH (21:00)
--- NOTE | 2018-11-24 22:40 | CON ---
DATE OF CONSULTATION: INDICATION FOR CONSULTATION: This is a 77-year-old gentleman who has a history of intermittent atrial fibrillation. He remains in sinus rhythm at this time with some PACs and bigeminy. He was admitted after he was found to be anemic and had some GI bleeding. He had been on Xarelto. The Xarelto is now being held, I agree with that since fortunately he remains in sinus rhythm at this time with the PACs and PVCs and occasional ventricular bigeminy. However, at this time, there is no indication that he has any atrial fibrillation fortunately. He may eventually in the future be a candidate for a Watchman device if he continues to have episodes of atrial fibrillation and further bleeding. However, even with the Watchman device, he would be required to be on anticoagulation for at least about 3 months until the device heals and that is assuming that there would be no rosy device leak, so he would need to be on anticoagulation even longer. At this time, I would agree with holding his Xarelto and continue to monitor him very closely. He denies any chest pain or shortness of breath. He does have Parkinson disease. He has been confused. He has had a fall recently. I believe also he has been in rehab and seems to be doing quite well, but has been admitted to the hospital at this time and also remains stable at this time. He has Parkinson's and some dementia, but does answer most of the questions appropriately. He did think he was still in the rehab center, but when reminded that he understood where he was and insidiously he had anticipating returning to the rehab facility. At this time, his cardiac status is stable and I would agree with holding the Xarelto as well as aspirin at this time. We may be able to resume the low-dose aspirin once there is no evidence of any further bleeding or GI loss and hemoglobin stabilizes. PAST MEDICAL HISTORY: Please refer to the notes dictated by the nurse practitioner. SOCIAL HISTORY: Please refer to the notes dictated by the nurse practitioner. FAMILY HISTORY: Please refer to the notes dictated by the nurse practitioner. REVIEW OF SYSTEMS: Please refer to the notes dictated by the nurse practitioner. ALLERGIES: PLEASE REFER TO THE NOTES DICTATED BY THE NURSE PRACTITIONER. MEDICATIONS: Please refer to the notes dictated by the nurse practitioner, his physical examination, also I would agree with her assessment and plan. PHYSICAL EXAMINATION: From my perspective, this elderly gentleman; VITAL SIGNS: Vital signs appeared to be stable. His blood pressure is 110/65, heart rate is in the 60s to 70s and shows sinus rhythm with occasional PACs and PVCs. He is afebrile. Respiratory rate 16. HEENT: Reveals the head to be normocephalic and atraumatic. Carotid pulses are present. I did not hear any significant bruits. CHEST: Clear to auscultation. There are no rales, rhonchi, or wheezing. CARDIOVASCULAR: Reveals a regular rhythm most of the time with occasional ectopy. There were no gross murmurs noted. ABDOMEN: Soft and nontender. Positive bowel sounds are present. EXTREMITIES: Show no clubbing or cyanosis. He did have 1 to 2+ lower extremity edema. NEUROLOGIC: He has some evidence of dementia and forgetfulness. IMPRESSION: 1. Intermittent atrial fibrillation. The patient has been on Xarelto, who has now developed gastrointestinal bleeding with anemia. We will hold the Xarelto as well as aspirin and will have replacement as needed. 2. History of dyslipidemia. He will continue on atorvastatin. 3. Hypertension. This is under very good control at this time. 4. History of coronary artery disease. He underwent angioplasty and stent placement in the past. He is certainly out long enough that we would not necessarily need to be on Plavix at this time, but he has not been on Plavix, but we will continue with his aspirin in the future if at all possible. 5. History of what appears to be Parkinson disease and some dementia. We will leave this discretion to the primary care service, who continued to follow the patient with you, but at this time, from a cardiac standpoint, he is stable, fortunately remaining in sinus rhythm and denies any chest pain or shortness of breath. Job ID: [id number]
[2018-11-25 05:34] LABS: #Eosinphils 0.2 thou/uL (0.0-0.7); #Lymphocytes 0.7 thou/uL (1.20-3.40); #Monocytes 0.8 thou/uL (0.11-0.59); #Neutrophils 6.7 thou/uL (1.40-6.50); %Eosinophils 1.8 % (0.0-10.0); %Lymphocytes 8.4 % (21.0-51.0); %Monocytes 9.5 % (0.0-10.0); %Neutrophils 80.3 % (42.0-75.0); Hemoglobin 9.2 g/dL (14.0-18.0); Mean Corpuscular HGB CONC 32.2 g/dL (32.0-36.0); Mean Corpuscular Hemoglobin 29.4 pg (27.0-31.0); Mean Corpuscular Volume 91.2 fL (78.0-98.0); Mean Platelet Volume 8.5 fL (7.4-10.4); Platelet Count 167 thou/uL (130-400); RBC Distribution Width 15.3 % (11.5-14.5); Red Blood Cell (RBC) Count 3.12 mill/uL (4.70-6.10); White Blood Cell (WBC) Count 8.3 thou/uL (4.8-10.8)
[2018-11-25 06:04] LABS: Anion Gap 11 mmol/L (10-20); BUN (Urea Nitrogen) 19 mg/dL (8.4-25.7); Calc. Creatinine Clearance 87 mL/min (70-130); Calcium 8.2 mg/dL (7.8-10.44); Carbon Dioxide 24 mmol/L (23-31); Chloride 111 mmol/L (98-107); Estimated GFR-MDRD 73; Glucose 108 mg/dL (83-110); Potassium 3.4 mmol/L (3.5-5.1); Sodium 143 mmol/L (136-145)
[2018-11-25] MEDS: Carbidopa/Levodopa 25-100 mg Tablet PO SCH ×3 (08:51→17:27)
--- NOTE | 2018-11-25 09:42 | PDOC.PN ---
- Subjective Encounter Start Date: 11/25/18 (f/u weakness) Encounter Start Time: 09:39 Subjective: Pt c/o some back pain from being in bed. Denies any other concerns -: or needs. Denies n/v/abd pain/cp/sob - Objective Resuscitation Status - Order Detail: 11/15/18 17:01 Resuscitation Status Routine Resuscitation Status: FULL: Full Resuscitation Discussed with: Patient and who is MPOA Vital Signs & Weight: Vital Signs (12 hours) Temp Pulse Ox 11/25/18 07:43 100 11/25/18 07:05 98.8 F 11/25/18 03:53 98.9 F 11/25/18 00:00 99.2 F Weight Admit Weight 213 lb 13.574 oz Weight 213 lb 13.574 oz Most Recent Monitor Data Heart Rate from ECG 77 NIBP 144/69 NIBP BP-Mean 94 Respiration from ECG 19 SpO2 100 I&O: 11/24/18 11/25/18 11/26/18 06:59 06:59 06:59 Intake Total 240 360 Output Total 1 Balance 240 359 Result Diagrams: 11/25/18 05:21 11/25/18 05:21 EKG Reviewed by me: Yes (tele - frequent pac's and bigiminy) Phys Exam - Physical Examination Constitutional: NAD Respiratory: no wheezing, no rales, no rhonchi Cardiovascular: no significant murmur, irregular Gastrointestinal: soft, non-tender, no distention, positive bowel sounds Musculoskeletal: no edema Neurological: non-focal, moves all 4 limbs Psychiatric: normal affect Deviation from normal: improved alertness today oriented to situation Skin: no rash Dx/Plan (1) Acute blood loss anemia Code(s): D62 - ACUTE POSTHEMORRHAGIC ANEMIA Status: Acute (2) Dyslipidemia Code(s): E78.5 - HYPERLIPIDEMIA, UNSPECIFIED Status: Chronic (3) Parkinsons disease Code(s): G20 - PARKINSON'S DISEASE Status: Chronic (4) Acute encephalopathy Code(s): G93.40 - ENCEPHALOPATHY, UNSPECIFIED Status: Acute (5) GI bleed Code(s): K92.2 - GASTROINTESTINAL HEMORRHAGE, UNSPECIFIED Status: Resolved (6) Hypertension Code(s): I10 - ESSENTIAL (PRIMARY) HYPERTENSION Status: Chronic Qualifiers: Hypertension type: essential hypertension Qualified Code(s): I10 - Essential (primary) hypertension (7) Cephalic vein thrombosis Code(s): I82.619 - ACUTE EMBOLISM AND THROMBOSIS OF SUPERFIC VN UNSP UP EXTREM Status: Acute - Plan * * CT yesterday negative - checked due to fall prompting this hospital admision * * change protonix to PO * Checked home meds - entered yesterday * * pt with a fib on Xarelto prior to hospitalization - frequent pac/pvc here - appreciate Dr. Carmen evaluation - hold both aspirin and Xarelto for now. No other med recs. Reviewed note from Dr. Otoole - can resume in a few days if for prophylaxis * * encephalopathy appears improved this morning - from chronic disease and hospitalization/events - monitor for clearing, continue the seroquel for now * * transfer to tele when bed available * replace potassium * anticipate d/c to rehab when approved - pt is stable for transfer today * * dvt prophy - scds * gi prophy - once daily ppi * code status full * * reviewed plan of care with patient, no questions or further needs at end of eval.
[2018-11-25] MEDS ORDERED: Potassium Chloride 20 MEQ TAB PO SCH (09:45)
--- NOTE | 2018-11-25 12:06 | PDOC.CTH ---
Cardiology Progress Note - Subjective Pt. seen and eval. by me. No new overnight events. sitting up in chair. Still some confusion. does not remember me from yesterday. - Objective Vital Signs Temp Pulse Ox 11/25/18 10:37 99.3 F 11/25/18 07:43 100 11/25/18 07:05 98.8 F 11/25/18 03:53 98.9 F Admit Weight 213 lb 13.574 oz Weight 213 lb 13.574 oz 11/24/18 11/25/18 11/26/18 06:59 06:59 06:59 Intake Total 240 360 240 Output Total 1 Balance 240 359 240 - Physical Examination General/Neuro: other: (mild confusion.No focal findings.) Neck: carotid US brisk, no JVD present Lungs: CTA Heart: RRR, other: (occ. PVC) Abdomen: no HSM, soft Extremities: other: (1+ edema of feet,lower legs.) - Telemetry Telemetry Rhythm: NSR,PVC's. - Labs Result Diagrams: 11/25/18 05:21 11/25/18 05:21 Troponin/CKMB Troponin I Less than 0.010 ng/mL (< 0.028) 11/16/18 00:28 - Assessment/Plan 1. Acute GI blood loss. Uncertain origin. Continue to hold OAC. 2. Afib. Maintaining NSR. may be a candidate for the Watchman device. But would need OAC for a duration after the procedure. 3. Hypotension: stable. 4. Parkinson's. May be some of the reason for confusion. 5. Anemia. Stable. Review of Systems - Review of Systems EENTM: reports: no symptoms reported Respiratory: reports: no symptoms reported Cardiac (ROS): reports: no symptoms reported, edema ABD/GI: reports: no symptoms reported : reports: no symptoms reported
[2018-11-25] MEDS: Atorvastatin Calcium 40 MG TAB PO SCH (20:52)
[2018-11-25] MEDS: Metoprolol Tartrate 25 MG TAB PO SCH (20:52)
[2018-11-26 06:17] LABS: #Eosinphils 0.1 thou/uL (0.0-0.7); #Lymphocytes 0.8 thou/uL (1.20-3.40); #Monocytes 0.9 thou/uL (0.11-0.59); #Neutrophils 9.7 thou/uL (1.40-6.50); %Basophils 0.1 % (0.0-1.0); %Eosinophils 0.6 % (0.0-10.0); %Lymphocytes 7.1 % (21.0-51.0); %Monocytes 7.9 % (0.0-10.0); %Neutrophils 84.4 % (42.0-75.0); Hemoglobin 10.3 g/dL (14.0-18.0); Mean Corpuscular HGB CONC 31.9 g/dL (32.0-36.0); Mean Corpuscular Volume 93.9 fL (78.0-98.0); Mean Platelet Volume 8.9 fL (7.4-10.4); Platelet Count 187 thou/uL (130-400); RBC Distribution Width 15.7 % (11.5-14.5); Red Blood Cell (RBC) Count 3.42 mill/uL (4.70-6.10); White Blood Cell (WBC) Count 11.5 thou/uL (4.8-10.8)
[2018-11-26 06:40] LABS: Anion Gap 13 mmol/L (10-20); BUN (Urea Nitrogen) 21 mg/dL (8.4-25.7); Calc. Creatinine Clearance 92 mL/min (70-130); Calcium 8.5 mg/dL (7.8-10.44); Carbon Dioxide 22 mmol/L (23-31); Chloride 109 mmol/L (98-107); Estimated GFR-MDRD 78; Glucose 102 mg/dL (83-110); Sodium 140 mmol/L (136-145)
[2018-11-26] MEDS: Carbidopa/Levodopa 25-100 mg Tablet PO SCH ×3 (09:06→17:17)
[2018-11-26] MEDS: Potassium Chloride 10 MEQ TAB PO SCH (09:07)
[2018-11-26] MEDS: Metoprolol Tartrate 25 MG TAB PO SCH ×2 (09:07→20:10)
--- NOTE | 2018-11-26 11:12 | PDOC.PN ---
- Subjective Encounter Start Date: 11/26/18 (f/u GI bleed) Encounter Start Time: 11:10 Subjective: Pt with little sleep last night, restless - reports this is common -: at home - he will pace around the home at night and sleep during the -: day. - Objective Resuscitation Status - Order Detail: 11/15/18 17:01 Resuscitation Status Routine Resuscitation Status: FULL: Full Resuscitation Discussed with: Patient and who is MPOA Vital Signs & Weight: Vital Signs (12 hours) Temp Pulse Ox 11/26/18 07:56 97 11/26/18 07:38 100 11/26/18 07:03 98.9 F 11/26/18 04:07 99.0 F 11/26/18 00:06 99.2 F Weight Admit Weight 213 lb 13.574 oz Weight 213 lb 13.574 oz Most Recent Monitor Data Heart Rate from ECG 65 NIBP 141/51 NIBP BP-Mean 81 Respiration from ECG 16 SpO2 94 I&O: 11/25/18 11/26/18 11/27/18 06:59 06:59 06:59 Intake Total 360 1200 240 Output Total 1 Balance 359 1200 240 Result Diagrams: 11/26/18 06:11 11/26/18 06:11 EKG Reviewed by me: Yes (sinus 50's with episodes of bigeminy) Phys Exam - Physical Examination Constitutional: NAD Respiratory: no wheezing, no rales, no rhonchi, clear to auscultation bilateral Cardiovascular: RRR, no significant murmur Gastrointestinal: soft, non-tender, no distention, positive bowel sounds Musculoskeletal: no edema CARLITOS hose in place pt sleeping - did not wake up Skin: no rash Deviation from normal: ecchymosis along right antecubital fossa Dx/Plan (1) Acute blood loss anemia Code(s): D62 - ACUTE POSTHEMORRHAGIC ANEMIA Status: Acute (2) Dyslipidemia Code(s): E78.5 - HYPERLIPIDEMIA, UNSPECIFIED Status: Chronic (3) Parkinsons disease Code(s): G20 - PARKINSON'S DISEASE Status: Chronic (4) Acute encephalopathy Code(s): G93.40 - ENCEPHALOPATHY, UNSPECIFIED Status: Acute (5) GI bleed Code(s): K92.2 - GASTROINTESTINAL HEMORRHAGE, UNSPECIFIED Status: Resolved (6) Hypertension Code(s): I10 - ESSENTIAL (PRIMARY) HYPERTENSION Status: Chronic Qualifiers: Hypertension type: essential hypertension Qualified Code(s): I10 - Essential (primary) hypertension (7) Cephalic vein thrombosis Code(s): I82.619 - ACUTE EMBOLISM AND THROMBOSIS OF SUPERFIC VN UNSP UP EXTREM Status: Acute - Plan * Checked home meds - entered yesterday * * appreciate Cardiology consult -may be a candidate for a Watchman device in the future, but would require OAC afterwards. Hold OAC now due to recent GI bleed. * Pt with bigeminy and pvc's - will continue metoprolol * hold other home bp meds - as bp has been normal. * * encephalopathy improved, poor sleep last night makes assessment difficult. will add prn melatonin at night with goal of improving sleep/wake cycle. Continue seroquel at night * * GI bleed - hemoglobin stable. Pt has received endoscopy without location of bleeding, and tagged RBC scan without localization. GI signed off - recommend re-evaluation by primary team for when to start OAC. Will defer to Cardiology - may need to be as an outpatient for decision on when/how to restart. GI signed off. Recommend repeat colonoscopy in 5 years due to tubular adenoma polyp. * * transfer to tele when bed available * potassium normal - continue the home dosing of potassium replacement * * anticipate d/c to rehab when approved - pt is stable for transfer today * * dvt prophy - scds * gi prophy - once daily ppi * code status full * * reviewed plan of care with patient's , no questions or further needs at end of eval.
--- NOTE | 2018-11-26 13:10 | PDOC.CTH ---
Cardiology Progress Note - Subjective No overnight events. - Objective Vital Signs Temp Pulse Ox 11/26/18 11:12 99.0 F 11/26/18 07:56 97 11/26/18 07:38 100 11/26/18 07:03 98.9 F 11/26/18 04:07 99.0 F Admit Weight 213 lb 13.574 oz Weight 213 lb 13.574 oz 11/25/18 11/26/18 11/27/18 06:59 06:59 06:59 Intake Total 360 1200 240 Output Total 1 Balance 359 1200 240 - Physical Examination General/Neuro: alert & oriented x3 Neck: no JVD present Lungs: CTA Heart: RRR, other: (ectopy.) Extremities: other: (lower leg edema. Improved with compresson hose. Right arm edema.) - Labs Result Diagrams: 11/26/18 06:11 11/26/18 06:11 Troponin/CKMB Troponin I Less than 0.010 ng/mL (< 0.028) 11/16/18 00:28 - Assessment/Plan 1. Acute GI blood loss. Uncertain origin. Continue to hold OAC. 2. Afib. Maintaining NSR. may be a candidate for the Watchman device. But would need OAC for a duration after the procedure. 3. Hypotension: stable. 4. Parkinson's. May be some of the reason for confusion. 5. Anemia. Stable. 6. bradycardia with PVC's. May eventually need a pacemaker. he has fallen and does complain of dizziness. May consider a Linq ( implantable loop recorder). 7. Right cephalic vein thrombosis with edema of right arm. Informed pt. to try to keep elevated.
[2018-11-26] MEDS: Atorvastatin Calcium 40 MG TAB PO SCH (20:10)
[2018-11-26] MEDS: Melatonin 3 MG TAB PO PRN (20:11)
[2018-11-27 04:46] LABS: #Eosinphils 0.1 thou/uL (0.0-0.7); #Lymphocytes 0.8 thou/uL (1.20-3.40); #Monocytes 0.9 thou/uL (0.11-0.59); #Neutrophils 8.1 thou/uL (1.40-6.50); %Basophils 0.1 % (0.0-1.0); %Eosinophils 0.7 % (0.0-10.0); %Lymphocytes 7.6 % (21.0-51.0); %Monocytes 8.8 % (0.0-10.0); %Neutrophils 82.8 % (42.0-75.0); Hemoglobin 9.3 g/dL (14.0-18.0); Mean Corpuscular HGB CONC 32.2 g/dL (32.0-36.0); Mean Corpuscular Hemoglobin 29.9 pg (27.0-31.0); Mean Platelet Volume 9.3 fL (7.4-10.4); Platelet Count 156 thou/uL (130-400); RBC Distribution Width 15.9 % (11.5-14.5); White Blood Cell (WBC) Count 9.8 thou/uL (4.8-10.8)
[2018-11-27 05:05] LABS: Anion Gap 6 mmol/L (10-20); BUN (Urea Nitrogen) 22 mg/dL (8.4-25.7); Calc. Creatinine Clearance 83 mL/min (70-130); Calcium 8.2 mg/dL (7.8-10.44); Carbon Dioxide 28 mmol/L (23-31); Chloride 111 mmol/L (98-107); Estimated GFR-MDRD 69; Glucose 104 mg/dL (83-110); Potassium 4.1 mmol/L (3.5-5.1); Sodium 141 mmol/L (136-145)
[2018-11-27] MEDS: Potassium Chloride 10 MEQ TAB PO SCH (08:35)
[2018-11-27] MEDS: Carbidopa/Levodopa 25-100 mg Tablet PO SCH ×3 (08:35→17:39)
[2018-11-27] MEDS: Metoprolol Tartrate 25 MG TAB PO SCH ×2 (08:41→20:45)
--- NOTE | 2018-11-27 09:08 | CON ---
DATE OF CONSULTATION: PRIMARY CARE DOCTOR: Stacey Brower MD PRIMARY SUPERVISOR CONDITIONING YARD: Buster Hunter MD PRIMARY GI PHYSICIAN: Fox Otoole MD REASON FOR CARDIOLOGY CONSULTATION: Atrial fibrillation with anticoagulant, Xarelto. HISTORY OF PRESENT ILLNESS: Mr. Roman is a 77-year-old male with significant history of paroxysmal atrial fibrillation with Xarelto and coronary artery disease with stent placement in 2008 and with Parkinson's disease, recent fall is 1 week ago. The patient is hospitalized at this moment due to GI bleed with black tarry stool. The patient had a colonoscopy on November 22, which shows no active bleeding site to identify and no polyp was removed. Ileum was normal and CT scan of the abdomen and Plavix was performed, which shows some small effusion and mild prostatic enlargement, and diverticulosis, but no mass or lesion in the small bowel to account for the GI bleed. Cardiology consult was ordered due to the patient in Xarelto and also frequent PVCs, PAC on the telemetry record. At this moment, the patient is really confused, possible secondary to the recent fall, however, the patient's CT scan of brain shows no active bleeding or hematoma. No acute intracranial hemorrhage or mass at this moment. The patient's medical information was obtained from the patient's medical record and Dr. Hunter's office note. At this moment, the patient resting well without any difficulty. The patient had a stent placement done in the LAD in February 2009. The patient had another cardiac catheterization in October 2012, shows a patent stent in the LAD and the patient had a stress test done in February 2018, shows no ischemia with EF 52%. Echo was done in April 2017, showed EF of 50% to 55%, mildly dilated left atrium, mild mitral valve regurgitation, mild tricuspid regurgitation, and moderate aortic valve regurgitation. The ultrasound in the upper extremity shows thrombosis in the right cephalic vein. PAST MEDICAL HISTORY: 1. Coronary artery disease. 2. Hypertension. 3. Paroxysmal atrial fibrillation. At this moment, the patient has sinus rhythm, CVA, dyslipidemia, kidney tumor. PAST SURGICAL HISTORY: Atrial fibrillation ablation in 2007, right with aneurysm with arteriovenous fistula repair in 2007, cholecystectomy, appendectomy, tonsillectomy, stent placement in the LAD in February 2009, and tumor removed from the kidney. FAMILY HISTORY: The patient's mother has a pacemaker, otherwise unremarkable for early heart disease. SOCIAL HISTORY: The patient is . According to the medical record, he denied tobacco abuse. He has a social alcohol use. ALLERGIES: NO KNOWN DRUG ALLERGIES. HOME MEDICATIONS: 1. CoQ10 of 200 mg once a day. 2. Atorvastatin 80 mg once a day. 3. Xarelto 20 mg once a day. 4. Potassium 10 mEq once a day. 5. Protonix 40 mg once a day. 6. ? Metoprolol tartrate . 7. Losartan 100 mg once a day. 8. Lasix 20 mg once a day. 9. Carbidopa and levodopa 10/100 mg one tablet 3 times a day. 10. Aspirin 81 mg once a day. 11. Amlodipine 5 mg once a day. 12. Combigan eye drops. REVIEW OF SYSTEMS: Noncontributory. PHYSICAL EXAMINATION: VITAL SIGNS: Blood pressure 110/65, pulse is 83, temperature 98.8, respiratory rate 18, and O2 saturation 100% with room air. GENERAL: The patient is resting well at this moment. According to the RN, the patient is very confused still. HEENT: Eyes, he wears glasses. ENT and mouth; oral and nasal mucosa moist without lesion. Normocephalic and atraumatic. NECK: No JVD. No bruit or thrill noted at this moment. RESPIRATORY: Clear to auscultate bilaterally, but diminished at the bases. CARDIOVASCULAR: Regular rate and rhythm, but occasional skipping beats, which is a possible PVCs. No significant murmur, hives, or thrill noted at this time. 2+ pulses bilateral ankles more to the right side. 2+ pulses on bilateral upper and lower extremities. ABDOMEN: Nontender. No mass to palpitate. The bowel sounds are present, but hypoactive at this moment. SKIN: Warm and dry. No lesion, rash, or erythema noted. NEUROLOGIC: At this moment, the patient is resting well. Unable to assess. PSYCHIATRIC: According to RN, the patient is still confused. At this moment, the patient is resting very well in the bed. LABORATORY DATA: The 12-lead EKG show sinus rhythm with occasional PVCs, like bigeminy PVCs. Lab: WBC 15.8; hemoglobin 8.4, which was 7.6 yesterday; hematocrit of 25.4; and platelets 136. Sodium of 141, potassium of 3.5, BUN 21, creatinine 0.88, and glucose 102. ASSESSMENT AND PLAN: 1. Paroxysmal atrial fibrillation. At this moment, the patient is in sinus rhythm with occasional premature ventricular contractions. He is not on any beta-dany or antiarrhythmia medicine at this moment. I would like to discuss with Dr. Carmen and we would like to adjust the patient's medication. He is not on anticoagulant or even aspirin at this moment due to the history of gastrointestinal bleed. According to the GI recommendation, the patient is able to resume the patient's anticoagulant, which is Xarelto within a couple of days. However, the patient is still confused. He tried to get out from his bed due to the confusion and also he has a recent fall from his head. Due to those reasons, possibly the patient should be on aspirin instead of full dose of anticoagulants, but we would like to defer. I would like to discuss with Dr. Carmen. 2. Coronary artery disease with a history of a stent placement in 2008. At this moment, the patient's condition is stable at this moment. We would like to continue to monitor. He is not on aspirin at this moment due to the recent gastrointestinal bleed. We would like to resume the statin and possibly start beta-dany. However, the patient's blood pressure is low normal side without any blood pressure medication, they will continue to monitor. 3. Encephalopathy. The patient has a CT scan done, which is showing no acute intracranial hemorrhage or mass effect. We would like to continue to monitor. 4. Gastrointestinal bleed. Per GI, the patient is clear to resume the anticoagulant within a couple days. We would like to continue to monitor at this moment. 5. Parkinson's disease, chronic. We would like to refer to the primary care doctor or neurologist. 6. Hyperlipidemia. The patient's stat[facility]. Thank you very much for allowing the Cardiology Service to participate in the care of this patient. We will follow along the patient's care team and make further recommendations as appropriate. Job ID: [id number]
--- NOTE | 2018-11-27 10:05 | PRG ---
DATE OF SERVICE: 11/27/2018 SUBJECTIVE: Mr. Roman is mildly confused. He orients easily. OBJECTIVE: VITAL SIGNS: His blood pressure is variable 109/61 and there was another of 150 systolic now. Pulse is in the 60s with frequent ventricular bigeminy. LUNGS: Clear. CARDIAC: Normal S1 and normal S2 with frequent premature beats. ABDOMEN: Soft and nontender. EXTREMITIES: There is moderate edema in lower extremities. There is [id number] edema in the right extremity. LABORATORY DATA: Hemoglobin is 9.3, stable. ASSESSMENT: 1. Anemia, likely gastrointestinal blood loss. 2. History of paroxysmal atrial fibrillation. 3. Coronary artery disease. 4. Thrombus in the right cephalic vein with edema. PLAN: 1. We will give diuretics. 2. We will review the records. I think he has had upper and lower endoscopies done. 3. Check iron levels, may benefit from intravenous iron. 4. ? Resume anticoagulant without aspirin, difficult situation, specially in view of the thrombus in the right cephalic vein with edema. Will not resume anticoagulant at this time in view of recent major GI bleed from small intestine. Job ID: [id number] [facility]
[2018-11-27] MEDS ORDERED: Furosemide 20 MG/2 ML VIAL SLOW IVP SCH (10:15)
[2018-11-27] MEDS ORDERED: Spironolactone 25 MG TAB PO SCH (10:15)
--- NOTE | 2018-11-27 11:26 | PDOC.PN ---
- Subjective Encounter Start Date: 11/27/18 Encounter Start Time: 11:40 Subjective: Patient without complaints. No CP/SOB/Cough. Started on Lasix -: orally this AM and urinating some from that. - Objective Resuscitation Status - Order Detail: 11/15/18 17:01 Resuscitation Status Routine Resuscitation Status: FULL: Full Resuscitation Discussed with: Patient and who is SAMMY LÓPEZ Reviewed: Yes Vital Signs & Weight: Vital Signs (12 hours) Temp Pulse Ox 11/27/18 11:09 98.8 F 11/27/18 08:00 100 11/27/18 07:08 98.8 F 11/27/18 04:00 98.5 F 11/27/18 02:18 96 11/27/18 00:00 98.8 F Weight Admit Weight 213 lb 13.574 oz Weight 213 lb 13.574 oz Most Recent Monitor Data Heart Rate from ECG 71 NIBP 123/93 NIBP BP-Mean 103 Respiration from ECG 24 SpO2 97 I&O: 11/26/18 11/27/18 11/28/18 06:59 06:59 06:59 Intake Total 1200 1700 Balance 1200 1700 Result Diagrams: 11/27/18 04:00 11/27/18 04:00 Phys Exam - Physical Examination Constitutional: NAD HEENT: moist MMs Respiratory: no wheezing, no rales, no rhonchi Cardiovascular: no significant murmur, irregular Gastrointestinal: soft, positive bowel sounds Neurological: non-focal, moves all 4 limbs Psychiatric: normal affect, A&O x 3 Dx/Plan (1) GI bleed Code(s): K92.2 - GASTROINTESTINAL HEMORRHAGE, UNSPECIFIED Status: Resolved (2) Paroxysmal atrial fibrillation Code(s): I48.0 - PAROXYSMAL ATRIAL FIBRILLATION Status: Chronic (3) Parkinsons disease Code(s): G20 - PARKINSON'S DISEASE Status: Chronic (4) CAD (coronary artery disease) Code(s): I25.10 - ATHSCL HEART DISEASE OF [place] CORONARY ARTERY W/O ANG PCTRS Status: Chronic Qualifiers: Coronary Disease-Associated Artery/Lesion type: [place] artery [place] vs. transplanted heart: [place] heart Associated angina: without angina Qualified Code(s): I25.10 - Atherosclerotic heart disease of [place] coronary artery without angina pectoris Comment: previous stent (5) Dyslipidemia Code(s): E78.5 - HYPERLIPIDEMIA, UNSPECIFIED Status: Chronic (6) [place] on CPAP Code(s): G47.33 - OBSTRUCTIVE SLEEP APNEA (ADULT) (PEDIATRIC); Z99.89 - DEPENDENCE ON OTHER ENABLING MACHINES AND DEVICES Status: Chronic (7) Hypertension Code(s): I10 - ESSENTIAL (PRIMARY) HYPERTENSION Status: Chronic Qualifiers: Hypertension type: essential hypertension Qualified Code(s): I10 - Essential (primary) hypertension (8) Acute encephalopathy Code(s): G93.40 - ENCEPHALOPATHY, UNSPECIFIED Status: Acute (9) Acute blood loss anemia Code(s): D62 - ACUTE POSTHEMORRHAGIC ANEMIA Status: Acute Comment: stable H/ H (10) Cephalic vein thrombosis Code(s): I82.619 - ACUTE EMBOLISM AND THROMBOSIS OF SUPERFIC VN UNSP UP EXTREM Status: Acute - Plan cont current plan of care, PT/OT Patient stable for discharge to rehab- possibly tomorrow after ECHO -: Decision on when/if to start OAC deferred to cardiology * . - Discharge Day Encounter end time: 11:50
[2018-11-27 11:56] LABS: Iron 19 ug/dL (65-175); Iron Binding Capacity, Total 213 mcg/dL (261-462)
[2018-11-27] MEDS ORDERED: Potassium Chloride 20 MEQ TAB PO SCH (12:00)
[2018-11-27] MEDS: Melatonin 3 MG TAB PO PRN (20:45)
[2018-11-27] MEDS: Atorvastatin Calcium 40 MG TAB PO SCH (20:45)
[2018-11-28 06:16] LABS: #Eosinphils 0.1 thou/uL (0.0-0.7); #Lymphocytes 0.8 thou/uL (1.20-3.40); #Monocytes 0.9 thou/uL (0.11-0.59); #Neutrophils 7.9 thou/uL (1.40-6.50); %Basophils 0.3 % (0.0-1.0); %Eosinophils 0.9 % (0.0-10.0); %Lymphocytes 7.8 % (21.0-51.0); %Monocytes 8.9 % (0.0-10.0); %Neutrophils 82.1 % (42.0-75.0); Hemoglobin 10.2 g/dL (14.0-18.0); Mean Corpuscular Hemoglobin 29.2 pg (27.0-31.0); Mean Corpuscular Volume 91.4 fL (78.0-98.0); Mean Platelet Volume 9.4 fL (7.4-10.4); Platelet Count 166 thou/uL (130-400); RBC Distribution Width 16.4 % (11.5-14.5); White Blood Cell (WBC) Count 9.6 thou/uL (4.8-10.8)
[2018-11-28 06:38] LABS: Anion Gap 11 mmol/L (10-20); BUN (Urea Nitrogen) 21 mg/dL (8.4-25.7); Calc. Creatinine Clearance 83 mL/min (70-130); Calcium 8.4 mg/dL (7.8-10.44); Carbon Dioxide 28 mmol/L (23-31); Chloride 108 mmol/L (98-107); Estimated GFR-MDRD 69; Glucose 95 mg/dL (83-110); Potassium 4.1 mmol/L (3.5-5.1); Sodium 143 mmol/L (136-145)
[2018-11-28] MEDS ORDERED: Spironolactone 25 MG TAB PO SCH (08:00)
[2018-11-28] MEDS: Metoprolol Tartrate 25 MG TAB PO SCH (08:37)
[2018-11-28] MEDS: Potassium Chloride 10 MEQ TAB PO SCH (08:37)
[2018-11-28] MEDS: Carbidopa/Levodopa 25-100 mg Tablet PO SCH ×2 (08:37→11:25)
--- NOTE | 2018-11-28 09:57 | PDOC.PN ---
- Subjective Encounter Start Date: 11/28/18 Encounter Start Time: 10:30 Subjective: Patient without complaint. Swelling a bit better. No CP/SOB. - Objective Resuscitation Status - Order Detail: 11/15/18 17:01 Resuscitation Status Routine Resuscitation Status: FULL: Full Resuscitation Discussed with: Patient and who is SAMMY LÓPEZ Reviewed: Yes Vital Signs & Weight: Vital Signs (12 hours) Temp Pulse Ox 11/28/18 07:19 100 11/28/18 07:03 98.8 F 11/28/18 03:22 98.9 F 11/27/18 23:27 98.8 F Weight Admit Weight 213 lb 13.574 oz Weight 213 lb 13.574 oz Most Recent Monitor Data Heart Rate from ECG 63 NIBP 137/53 NIBP BP-Mean 81 Respiration from ECG 18 SpO2 100 I&O: 11/27/18 11/28/18 11/29/18 06:59 06:59 06:59 Intake Total 1700 1570 Output Total 250 Balance 1700 1320 Result Diagrams: 11/28/18 05:55 11/28/18 05:55 Phys Exam - Physical Examination Constitutional: NAD HEENT: moist MMs Respiratory: no wheezing, no rales, no rhonchi Cardiovascular: RRR Gastrointestinal: soft, non-tender, positive bowel sounds trace LE edema Psychiatric: normal affect, A&O x 3 Dx/Plan (1) GI bleed Code(s): K92.2 - GASTROINTESTINAL HEMORRHAGE, UNSPECIFIED Status: Resolved (2) Paroxysmal atrial fibrillation Code(s): I48.0 - PAROXYSMAL ATRIAL FIBRILLATION Status: Chronic (3) Parkinsons disease Code(s): G20 - PARKINSON'S DISEASE Status: Chronic (4) CAD (coronary artery disease) Code(s): I25.10 - ATHSCL HEART DISEASE OF [place] CORONARY ARTERY W/O ANG PCTRS Status: Chronic Qualifiers: Coronary Disease-Associated Artery/Lesion type: [place] artery [place] vs. transplanted heart: [place] heart Associated angina: without angina Qualified Code(s): I25.10 - Atherosclerotic heart disease of [place] coronary artery without angina pectoris Comment: previous stent (5) Dyslipidemia Code(s): E78.5 - HYPERLIPIDEMIA, UNSPECIFIED Status: Chronic (6) [place] on CPAP Code(s): G47.33 - OBSTRUCTIVE SLEEP APNEA (ADULT) (PEDIATRIC); Z99.89 - DEPENDENCE ON OTHER ENABLING MACHINES AND DEVICES Status: Chronic (7) Hypertension Code(s): I10 - ESSENTIAL (PRIMARY) HYPERTENSION Status: Chronic Qualifiers: Hypertension type: essential hypertension Qualified Code(s): I10 - Essential (primary) hypertension (8) Acute encephalopathy Code(s): G93.40 - ENCEPHALOPATHY, UNSPECIFIED Status: Acute (9) Acute blood loss anemia Code(s): D62 - ACUTE POSTHEMORRHAGIC ANEMIA Status: Acute Comment: stable H/ H (10) Cephalic vein thrombosis Code(s): I82.619 - ACUTE EMBOLISM AND THROMBOSIS OF SUPERFIC VN UNSP UP EXTREM Status: Acute - Plan cleared for d/c to rehab by Dr. Hunter -: ECHO with normal EF * . - Discharge Day Encounter end time: 11:00
[2018-11-28] MEDS ORDERED: Torsemide 10 MG TAB PO SCH (10:00)
[2018-11-28 10:01] VITALS: BP 124/69
--- NOTE | 2018-11-28 10:47 | PRG ---
DATE OF SERVICE: 11/28/2018 SUBJECTIVE: Mr. Roman is awake and alert, seems more lucid today. His is in the room with him today. He has no chest pain or pressure. OBJECTIVE: VITAL SIGNS: Blood pressure 137/53, pulse is variable. Currently, he has ventricular bigeminy to rates in the 70s, but if it was taken radially, it would be 35. LUNGS: Clear. CARDIAC: Normal S1 and normal S2. ABDOMEN: Soft, nontender. EXTREMITIES: There is reduced edema from yesterday. Still has edema in the right forearm, but the leg edema is better. DIAGNOSTIC DATA: Reviewed the notes. Echocardiogram showed normal left ventricular function indicating that he has some diastolic heart failure, ejection fraction 55% to 60%. There is moderately dilated left atrium. Moderate tricuspid insufficiency with moderately elevated pulmonary artery pressure. I did review the records. The patient has undergone upper and lower endoscopy during this admission and it was thought that the source of his bleeding is probably small intestine based on some nuclear medicine imaging. ASSESSMENT: 1. Gastrointestinal bleeding, small intestine. 2. Cephalic vein thrombosis, right arm. 3. Diastolic heart failure. 4. Premature ventricular contractions in bigeminy. 5. Coronary artery disease, recent negative stress test. PLAN: 1. He will go on torsemide 10 mg a day. 2. Spironolactone 25 mg a day. 3. Potassium 10 mEq a day. 4. Reduce metoprolol to 12.5 mg twice a day. Beta dany does not seem to be helping the bigeminy if anything may be making it more pronounced. 5. He is on a statin. 6. At some point, could consider Watchman device, but for now, it is not feasible as he cannot be anticoagulated. 7. Not a candidate for PVC ablation at this time with his other multiple problems, although could be considered in the future. Job ID: [id number]
[2018-11-28 11:21] VITALS: TEMP 98.1
--- NOTE | 2018-11-28 16:10 | DIS ---
DATE OF ADMISSION: 11/15/2018 DATE OF DISCHARGE: 11/28/2018 PRIMARY CARE PHYSICIAN: Stacey Brower MD REASON FOR ADMISSION: Acute gastrointestinal bleed and melena. DIAGNOSES AT DISCHARGE: 1. Gastrointestinal bleed likely from the small bowel, resolved. 2. Paroxysmal atrial fibrillation. 3. Parkinson disease. 4. Coronary artery disease, chronic with previous stent. 5. Dyslipidemia. 6. Obstructive sleep apnea, on CPAP. 7. Hypertension. 8. Acute blood loss anemia, stable status post transfusion. 9. Cephalic vein thrombosis. 10. Acute metabolic encephalopathy. PROCEDURES: 1. EGD showing no evidence of bleeding in esophagus, stomach, or proximal duodenum. 2. Nuclear medicine bleeding scan showing evidence of gastrointestinal bleed within the right lower quadrant of the abdomen with multiple serpiginous loops of bowel seen, likely small bowel. 3. CT scan of the abdomen and pelvis with IV and oral contrast showing small bilateral pleural effusion, left renal cyst, sigmoid diverticulosis, and mild prostatic enlargement. 4. Colonoscopy with snare polypectomy showing normal distal ileum, ascending colon with lipoma, ascending colon polyp removed, sigmoid diverticulosis but no evidence of bleeding. Pathology showed a tubular adenoma without any high-grade dysplasia. 5. Right upper extremity vascular ultrasound showing proximal and mid cephalic vein thrombus down to the level of antecubital fossa in the right cephalic vein. No deep venous thrombosis. 6. CT scan of the head showing no intracranial hemorrhage or other abnormality. 7. Echocardiogram showing ejection fraction of 55% to 60%. Frequent PVCs, intermittent bigeminy, and moderately elevated pulmonary artery pressures. CONSULTATIONS: 1. Gastroenterology, Dr. Raygoza. 2. Pulmonology, Dung Castillo MD. 3. Neurology, Dr. Meier. 4. Cardiology, Saadia Carmen MD and Buster Hunter MD. PERTINENT LABORATORY: Initially hemoglobin dropped to 6.9 up to 10.2 and stable at discharge. Initial INR was 2.3 down to 1.2 before discharge. SUMMARY OF HOSPITAL COURSE: This is a 77-year-old white male with a history of atrial fibrillation, on Xarelto. No previous GI bleed. He reported melena for 3 to 4 days and increasing confusion. When he came in, he had few point drop in hemoglobin over the course of the day. He was transfused a unit of packed red blood cells at [facility] and transferred to us and continued to have massive amounts of melena and had some drop in his pressure. He was given Kcentra x2 doses in the emergency room and transfused blood. He had a bleeding scan done by Dr. Raygoza with above results. EGD was done that was negative for bleeding. He was transfused until his blood count came back up and was stable. His vital signs were stable. He was confused in the hospital and Dr. Morris was consulted. He determined that this was a mixture of metabolic encephalopathy with the patient's underlying Parkinson's. The patient did initially have a colonoscopy with above results. No noted source of bleeding was ever determined. Most likely, his small bowel bleed outside of the reach of endoscopies. The patient did stop bleeding. At that point, there was a question of risk of restarting anticoagulation versus the risk of stroke from his atrial fibrillation. Eventually, he was put on aspirin alone. The patient did have a cephalic vein thrombus from IV during his hospitalization, however, he had no DVT and this was treated symptomatically. The patient was eventually accepted to Rehab and discharged to [facility]. DISCHARGE MANAGEMENT: Discharged to [facility]. ACTIVITY: As tolerated. DIET: Healthy heart, fiber restricted diet with Ensure and live supplements twice a day. THERAPY: Occupational and physical therapy. FOLLOWUP: Follow up with Dr. Hunter and Dr. Brower in the outpatient. DISCHARGE MEDICATIONS: 1. Atorvastatin 80 mg at night. 2. Combigan eyedrops. 3. Carbidopa/levodopa 10/100 mg tablets, two tablets 3 times a day. 4. Lidocaine 5% patch, one patch q.7 days. 5. Melatonin 3 mg at night. 6. Metoprolol tartrate 25 mg daily. 7. Zofran as needed. 8. Protonix 40 mg daily. 9. Potassium chloride 10 mEq daily. 10. Seroquel 50 mg at night. 11. Spironolactone 25 mg daily. 12. Torsemide 10 mg daily. 13. Coenzyme Q10 of 200 mg at night. Arranging the details of this discharge took 35 minutes. Job ID: [id number]
[2018-11-28] MEDS ORDERED: Metoprolol Tartrate 25 MG TAB PO SCH (21:00)
[2018-11-29] MEDS ORDERED: Torsemide 10 MG TAB PO SCH (09:00)
== END 2018-11-28 14:52 | DRG 377 ==
LOC: ERS 14:27 → SDC 20:27 → CCU 20:28 → IMCU/EMU 11-20 11:10
PROVIDERS: ADMIT Internal Medicine; ATTEND Internal Medicine
PROC: 30233N1 Transfusion of Nonautologous Red Blood Cells into Peripheral Vein, Percutaneous Approach (ICD-10-PCS; principal; 2018-11-15)
PROC: 30283B1 Transfusion of Nonautologous 4-Factor Prothrombin Complex Concentrate into Vein, Percutaneous Approach (ICD-10-PCS; 2018-11-15)
PROC: 0DJ08ZZ Inspection of Upper Intestinal Tract, Via Natural or Artificial Opening Endoscopic (ICD-10-PCS; 2018-11-15)
PROC: 0DBK8ZX Excision of Ascending Colon, Via Natural or Artificial Opening Endoscopic, Diagnostic (ICD-10-PCS; 2018-11-22)
DX: K92.1 Melena (principal); G93.41 Metabolic encephalopathy; D62 Acute posthemorrhagic anemia; N17.9 Acute kidney failure, unspecified; T80.1XXA Vascular complications following infusion, transfusion and therapeutic injection, initial encounter; I82.611 Acute embolism and thrombosis of superficial veins of right upper extremity; I50.30 Unspecified diastolic (congestive) heart failure; G20 Parkinson's disease; I11.0 Hypertensive heart disease with heart failure; I25.10 Atherosclerotic heart disease of native coronary artery without angina pectoris; E86.0 Dehydration; I48.0 Paroxysmal atrial fibrillation; D12.2 Benign neoplasm of ascending colon; K57.30 Diverticulosis of large intestine without perforation or abscess without bleeding; D17.5 Benign lipomatous neoplasm of intra-abdominal organs; K64.8 Other hemorrhoids; E87.6 Hypokalemia; F02.80 Dementia in other diseases classified elsewhere, unspecified severity, without behavioral disturbance, psychotic disturbance, mood disturbance, and anxiety; I49.3 Ventricular premature depolarization; G47.33 Obstructive sleep apnea (adult) (pediatric); E78.00 Pure hypercholesterolemia, unspecified; Z86.73 Personal history of transient ischemic attack (TIA), and cerebral infarction without residual deficits; Z85.820 Personal history of malignant melanoma of skin; Z95.5 Presence of coronary angioplasty implant and graft; Z79.82 Long term (current) use of aspirin; Z79.01 Long term (current) use of anticoagulants
CPT/HCPCS: 36415; 36416; 36430; 70450; 70551; 74177; 78278; 80048; 80053; 81003; 82728; 83540; 83550; 84484; 85025; 85610; 85730; 86850; 86900; 86901; 88305; 93005; 93306; 96361; 96365; 96374; 96375; 99292; A9604; C9113; C9132; J1630; J1940; J2001; J2060; J2704; J3010; J3480; J7050; P9016; Q9966; Q9967

== ENCOUNTER 2021-03-23 11:52 | Inpatient (IN) | payer MEDICARE ==
[2021-03-23 12:52] LABS: #Eosinphils 0.1 thou/uL (0.0-0.7); #Lymphocytes 0.7 thou/uL (1.20-3.40); #Monocytes 0.8 thou/uL (0.11-0.59); #Neutrophils 9.1 thou/uL (1.40-6.50); %Lymphocytes 6.3 % (21.0-51.0); %Monocytes 7.5 % (0.0-10.0); %Neutrophils 85.2 % (42.0-75.0); Hemoglobin 13.9 g/dL (14.0-18.0); Mean Corpuscular HGB CONC 32.6 g/dL (32.0-36.0); Mean Corpuscular Hemoglobin 32.7 pg (27.0-31.0); Mean Platelet Volume 8.4 fL (7.4-10.4); Platelet Count 192 thou/uL (130-400); RBC Distribution Width 12.6 % (11.5-14.5); Red Blood Cell (RBC) Count 4.24 mill/uL (4.70-6.10); White Blood Cell (WBC) Count 10.6 thou/uL (4.8-10.8)
[2021-03-23 13:10] LABS: ALT (SGPT) 13 U/L (8-55); AST (SGOT) 22 U/L (5-34); Albumin 4.1 g/dL (3.4-4.8); Alkaline Phosphatase 160 U/L (40-110); Anion Gap 12 mmol/L (10-20); BUN (Urea Nitrogen) 25 mg/dL (8.4-25.7); Bilirubin, Total 1.3 mg/dL (0.2-1.2); Calc. Creatinine Clearance 0 mL/min (70-130); Calcium 9.3 mg/dL (7.8-10.44); Carbon Dioxide 27 mmol/L (23-31); Chloride 104 mmol/L (98-107); Glucose 95 mg/dL (83-110); Lipase 39 U/L (8-78); Potassium 3.9 mmol/L (3.5-5.1); Protein, Total 7.1 g/dL (5.8-8.1); Sodium 139 mmol/L (136-145)
[2021-03-23 16:24] LABS: Troponin I Less than 0.010 ng/mL (< 0.028)
[2021-03-23] MEDS: Sodium Chloride 0.9% 1,000 ML IV SCH (17:40)
[2021-03-23 18:37] LABS: Troponin I Less than 0.010 ng/mL (< 0.028)
[2021-03-23] MEDS: DorzolamidE/Timolol 2%/0.5% Ophth Soln 10 ml Bottle L EYE SCH (21:56)
[2021-03-23] MEDS: DorzolamidE/Timolol 2%/0.5% Ophth Soln 10 ml Bottle R EYE SCH (21:56)
[2021-03-23] MEDS: Carbidopa/Levodopa 10-100 mg Tablet PO SCH (22:28)
[2021-03-23] MEDS: Baclofen 10 MG TAB PO PRN (22:28)
[2021-03-24] MEDS: Sodium Chloride 0.9% 1,000 ML IV SCH ×3 (05:18→22:16)
[2021-03-24 05:39] LABS: Anion Gap 9 mmol/L (10-20); BUN (Urea Nitrogen) 23 mg/dL (8.4-25.7); Calc. Creatinine Clearance 87 mL/min (70-130); Calcium 8.4 mg/dL (7.8-10.44); Carbon Dioxide 25 mmol/L (23-31); Chloride 111 mmol/L (98-107); Glucose 94 mg/dL (83-110); Potassium 3.8 mmol/L (3.5-5.1); Sodium 141 mmol/L (136-145)
[2021-03-24] MEDS: Tamsulosin HCl 0.4 MG CAP PO SCH (08:08)
[2021-03-24] MEDS: Carbidopa/Levodopa 10-100 mg Tablet PO SCH ×2 (08:08→14:04)
[2021-03-24] MEDS: DorzolamidE/Timolol 2%/0.5% Ophth Soln 10 ml Bottle R EYE SCH ×2 (08:09→20:46)
[2021-03-24] MEDS: DorzolamidE/Timolol 2%/0.5% Ophth Soln 10 ml Bottle L EYE SCH ×2 (08:09→20:45)
[2021-03-24] MEDS: Rivaroxaban 10 MG TAB PO SCH (16:16)
[2021-03-24] MEDS: Pramipexole Di-HCl 0.25 MG TAB PO SCH (20:44)
[2021-03-24] MEDS: Carbidopa/Levodopa 25-250 mg Tablet PO SCH (20:44)
[2021-03-25] MEDS: Carbidopa/Levodopa 25-250 mg Tablet PO SCH ×3 (08:41→21:50)
[2021-03-25] MEDS: Tamsulosin HCl 0.4 MG CAP PO SCH (11:02)
[2021-03-25] MEDS: Sodium Chloride 0.9% 1,000 ML IV SCH (12:21)
[2021-03-25] MEDS: DorzolamidE/Timolol 2%/0.5% Ophth Soln 10 ml Bottle R EYE SCH ×2 (15:06→21:51)
[2021-03-25] MEDS: DorzolamidE/Timolol 2%/0.5% Ophth Soln 10 ml Bottle L EYE SCH ×2 (15:06→21:51)
[2021-03-25] MEDS: Rivaroxaban 10 MG TAB PO SCH (15:33)
[2021-03-25] MEDS ORDERED: Enoxaparin Sodium 100 MG/ML SYRINGE SC SCH (16:00)
[2021-03-25] MEDS: Acetaminophen 325 MG TAB PO PRN (18:49)
[2021-03-25] MEDS: Pramipexole Di-HCl 0.25 MG TAB PO SCH (21:51)
[2021-03-26] MEDS: Sodium Chloride 0.9% 1,000 ML IV SCH ×2 (02:54→17:38)
[2021-03-26] MEDS ORDERED: Gentamicin 80 MG/2 ML VIAL ONE (06:44)
[2021-03-26] MEDS ORDERED: Fentanyl 100 MCG/2 ML VIAL ONE (06:44)
[2021-03-26] MEDS ORDERED: CEFAZOLIN 1 GM VIAL ONE (06:44)
[2021-03-26] MEDS ORDERED: Midazolam HCl 2 mg/2 ml Vial ONE (06:44)
[2021-03-26] MEDS ORDERED: Lidocaine 1% (PF) 30 ML VIAL ONE (07:26)
[2021-03-26] MEDS ORDERED: Iopamidol 370 76% 50 ML VIAL FS ONE (08:55)
[2021-03-26] MEDS ORDERED: Metoprolol Tartrate 25 MG TAB PO SCH (10:00)
[2021-03-26] MEDS: Carbidopa/Levodopa 25-250 mg Tablet PO SCH ×3 (10:31→20:56)
[2021-03-26] MEDS: Tamsulosin HCl 0.4 MG CAP PO SCH (10:32)
[2021-03-26] MEDS: DorzolamidE/Timolol 2%/0.5% Ophth Soln 10 ml Bottle L EYE SCH ×2 (10:33→21:00)
[2021-03-26] MEDS: DorzolamidE/Timolol 2%/0.5% Ophth Soln 10 ml Bottle R EYE SCH ×2 (10:33→21:03)
[2021-03-26] MEDS: Acetaminophen 325 MG TAB PO PRN (10:34)
[2021-03-26] MEDS: Cephalexin 250 MG CAP PO SCH ×3 (14:29→20:58)
[2021-03-26] MEDS: Rivaroxaban 10 MG TAB PO SCH (18:42)
[2021-03-26] MEDS ORDERED: ALPRAZolam 0.25 MG TAB PO SCH (19:00)
[2021-03-26] MEDS: Pramipexole Di-HCl 0.25 MG TAB PO SCH (20:58)
[2021-03-26] MEDS: Metoprolol Tartrate 25 MG TAB PO SCH (20:59)
[2021-03-26] MEDS ORDERED: Furosemide 20 MG/2 ML VIAL SLOW IVP SCH (21:45)
[2021-03-27] MEDS: Baclofen 10 MG TAB PO PRN (00:54)
[2021-03-27] MEDS: Acetaminophen 325 MG TAB PO PRN (00:55)
[2021-03-27 06:15] VITALS: BMI 25.2
[2021-03-27] MEDS: DorzolamidE/Timolol 2%/0.5% Ophth Soln 10 ml Bottle L EYE SCH ×2 (09:13→20:43)
[2021-03-27] MEDS: DorzolamidE/Timolol 2%/0.5% Ophth Soln 10 ml Bottle R EYE SCH ×2 (09:13→20:43)
[2021-03-27] MEDS: Tamsulosin HCl 0.4 MG CAP PO SCH (09:13)
[2021-03-27] MEDS: Carbidopa/Levodopa 25-250 mg Tablet PO SCH ×3 (09:14→20:43)
[2021-03-27] MEDS: Metoprolol Tartrate 25 MG TAB PO SCH ×2 (09:14→20:44)
[2021-03-27] MEDS: Cephalexin 250 MG CAP PO SCH ×4 (09:16→20:44)
[2021-03-27] MEDS: Pramipexole Di-HCl 0.25 MG TAB PO SCH (20:43)
[2021-03-27 20:51] VITALS: BP 177/101; TEMP 98.2
== END 2021-03-27 23:30 | DRG 243 ==
LOC: ERS 11:52 → ERHOLD 13:43 → 2SW 15:31 → OBSVTOIN 03-24 18:11
PROVIDERS: ADMIT Internal Medicine; ATTEND Internal Medicine
PROC: 0JH606Z Insertion of Pacemaker, Dual Chamber into Chest Subcutaneous Tissue and Fascia, Open Approach (ICD-10-PCS; principal; 2021-03-26)
PROC: 02H63JZ Insertion of Pacemaker Lead into Right Atrium, Percutaneous Approach (ICD-10-PCS; 2021-03-26)
PROC: 02HK3JZ Insertion of Pacemaker Lead into Right Ventricle, Percutaneous Approach (ICD-10-PCS; 2021-03-26)
DX: I49.5 Sick sinus syndrome (principal); F05 Delirium due to known physiological condition; G20 Parkinson's disease; H40.9 Unspecified glaucoma; I49.3 Ventricular premature depolarization; I48.0 Paroxysmal atrial fibrillation; I25.10 Atherosclerotic heart disease of native coronary artery without angina pectoris; E78.5 Hyperlipidemia, unspecified; G47.33 Obstructive sleep apnea (adult) (pediatric); I49.8 Other specified cardiac arrhythmias; Z79.899 Other long term (current) drug therapy; Z79.82 Long term (current) use of aspirin; Z79.01 Long term (current) use of anticoagulants; Z87.442 Personal history of urinary calculi; Z85.820 Personal history of malignant melanoma of skin; Z90.49 Acquired absence of other specified parts of digestive tract; Z98.49 Cataract extraction status, unspecified eye; Z90.89 Acquired absence of other organs; Z99.89 Dependence on other enabling machines and devices
CPT/HCPCS: 33207; 36415; 71045; 76942; 80048; 80053; 83690; 83880; 84484; 85025; 93005; 93010; 97139; 99152; 99153; G0378; J0690; J1580; J1650; J1940; J2001; J2250; J3010; Q9967